=== PATIENT | female | born 1935 | race Caucasian/White ===

== ENCOUNTER 2022-06-24 03:11 | Inpatient (IN) | payer MEDICARE ==
--- NOTE | 2022-06-24 03:24 | ED ---
General Adult HPI - General Stated complaint: Stroke-like Symptoms Source: patient, EMS, RN notes reviewed, old records reviewed - History of Present Illness Initial comments: Patient is an 87-year-old female who presents emergency Department as a code stroke. Last known well was 8 PM. She awoke and was found on the toilet by her son in the bathroom. She seemed confused, with right-sided weakness. He believes there is a past medical history of hypertension, however EMS is uncertain. Unknown if patient is on blood thinners. Patient's son seemed unreliable per EMS and patient cannot provide any substantial history. Unknown if she fell. Transferred to the [facility] department for further evaluation. Patient denies any pain. States she feels weak on her right upper shoulder and right lower extremity. Does have some mild confusion at this time as well. Presents for further evaluation at this time. She denies any history of st rokes. Unknown if she is on blood thinners. - Related Data Allergies Allergy/AdvReac Type Severity Reaction Status Date / Time No Known Allergies Allergy Verified 06/24/22 05:11 Review of Systems ROS Statement: Those systems with pertinent positive or pertinent negative responses have been documented in the HPI. Review of Systems: CONST: Denies fever EYES: Denies blurry vision ENT: Denies nasal congestion C/V: Denies Chest pain RESP: Denies shortness of breath GI: Denies abdominal pain : Denies dysuria SKIN: Denies rash. MSK: Denies joint pain. NEURO: Endorses right-sided weakness ROS Other: All systems not noted in ROS Statement are negative. General Exam - General Exam Comments Initial Comments: General: Appears in no acute distress. HEAD: Normal with no signs of head trauma. EYES: PERRLA, EOMI, conjunctiva normal, no discharge. Pupils 2 mm and equal bilaterally. ENT: Hearing grossly intact, normal oropharynx. RESPIRATORY: Clear breath sounds bilaterally. No wheezes, rales, or rhonchi. C/V: Regular rate and rhythm. S1 and S2 auscultated, peripheral pulses 2+ and intact throughout ABD: Abd is soft, nontender, nondistended EXT: No obvious deformity. Right upper extremity and right lower extremity weakness. SKIN: No rashes or lesions observed on exposed skin. NEURO: Alert and oriented 2. Unknown baseline. NIH is approximately 8. 1 point for current incorrect month, 2 points for right arm motor drift, 2 points for right leg motor drift, 2 points for ataxia in 2 limbs, the right arm and leg 1 point for aphasia Course Vital Signs 06/24/22 06/24/22 06/24/22 03:11 03:51 04:45 Temperature 98.2 F Pulse Rate 69 63 62 Respiratory 18 15 15 Rate Blood Pressure 163/68 158/60 168/59 O2 Sat by Pulse 92 L 95 95 Oximetry 06/24/22 06/24/22 05:30 06:02 Temperature Pulse Rate 55 L 64 Respiratory 16 12 Rate Blood Pressure 164/52 170/60 O2 Sat by Pulse 94 L 95 Oximetry Medical Decision Making - Medical Decision Making Was pt. sent in by a medical professional or institution (, PA, HE[employer], urgent care, hospital, or intermediate...) When possible be specific @ -No Did you speak to anyone other than the patient for history (EMS, parent, family, police, friend...)? What history was obtained from this source @ -No Did you review nursing and triage notes (agree or disagree)? Why? @ -I reviewed and agree with nursing and triage notes Were old charts reviewed (outside hosp., previous admission, EMS record, old EKG, old radiological studies, urgent care reports/EKG's, intermediate records)? Report findings @ -No old charts were reviewed Differential Diagnosis (chest pain, altered mental status, abdominal pain women, abdominal pain men, vaginal bleeding, weakness, fever, dyspnea, syncope, headache, dizziness, GI bleed, back pain, seizure, CVA, palpatations, mental health, musculoskeletal)? @ -Differential CVA Ischemic stroke, hemorrhagic stroke, brain tumor, atypical migraine, Wernicke's encephalopathy, seizure, multiple sclerosis, meningitis, encephalitis, hypoglycemia, Guillain-Nathan, electrolytes disturbance, myasthenia gravis.... This is not meant to be an all-inclusive list EKG interpreted by me (3pts min.). @ -As above X-rays interpreted by me (1pt min.). @ -Chest x-ray shows possible mild pulmonary vascular congestion. CT interpreted by me (1pt min.). @ -CT brain revealed no obvious acute intracranial process. CT angiogram of the head and neck reveals right ICA stenosis 80-90%. No obvious large vessel occlusion or stenosis in the brain. U/S interpreted by me (1pt. min.). @ -None done What testing was considered but not performed or refused? (CT, X-rays, U/S, labs)? Why? @ -None What meds were considered but not given or refused? Why? @ -None Did you discuss the management of the patient with other professionals (professionals i.e. Dr., PA, [employer], lab, RT, psych nurse, social work assistant, application support lead, teacher, patrol officer, rn field case manager)? Give summary @ -I spoke with the neuro critical care doctor Dr. Hernandez who was in agreement with the management for the patient. Requested the patient be started on aspirin, Brilinta. I spoke with the admitting team MELISSA Fung of [facility] who accepted the patient. Was smoking cessation discussed for >3mins.? @ -No Was critical care preformed (if so, how long)? @ -Yes, 35 minutes Were there social determinants of health that impacted care today? How? (H omelessness, low income, unemployed, alcoholism, drug addiction, transportation, low edu. Level, literacy, decrease access to med. care, assisted, rehab)? @ -No Was there de-escalation of care discussed even if they declined (Discuss DNR or withdrawal of care, Hospice)? DNR status @ -No What co-morbidities impacted this encounter? (DM, HTN, Smoking, COPD, CAD, Cancer, CVA, ARF, Chemo, Hep., AIDS, mental health diagnosis, sleep apnea, morbid obesity)? @ -None Was patient admitted / discharged? Hospital course, mention meds given and route, prescriptions, significant lab abnormalities, going to OR and other pertinent info. @ -Based on the patient's presentation and physical exam, I'm concerned for a wake-up stroke for the patient. Last known well was 8 PM last night. It is currently approximately 3 AM in the morning. 7 hours from last known well. Code stroke was activated. NIH is approximately 8. Patient is not a TPA candidate as risks far outweigh the benefits. Accu-Chek is within acceptable limits. Vital signs within acceptable limits. We will obtain CT imaging as well as stroke labs. [facility] returned my call and was in agreement with the plan. We did review the CT without contrast together and it showed no acute ble ed. He will follow-up on the CT angiogram and call back if there is any significant stenosis or blockage he would like to intervene on. Otherwise he recommends adequate management, workup, starting the patient on aspirin and brillinta. EKG showed no signs of acute ischemia. Laboratory studies are remarkable for a mild anemia with a hemoglobin of 11.3. Troponin is undetectable. BNP is minimally elevated to 556. Chest x-ray reveals findings concerning for possible mild pulmonary vascular congestion. Poor inspiratory film overall. I stated above, CT brain reveals no obvious acute intracranial process. No hemorrhagic bleed or signs of stroke at this time. Patient does have some ventriculomegaly likely related to atrophy. CT angiogram of the brain revealed no acute intracranial process. No aneurysm or large vessel occlusion. However the neck does have right ICA stenosis 80-90%. On reevaluation, NIH is now approximate 7-8. Right upper extremity movement is improved as is the patient's aphasia. Patient's son was not bedside. I updated both of them and I would like to admit the patient to the hospital at this time. I did ask the patient's son once again motor medical problems are, however he states that he cannot recall and left her medications at home. He will attempt to obtain them for us. States baseline for the patient is alert and oriented 2-3. Sometimes gets confused with the time. Patient does appear to be at that right now. She is more alert. He expresses understanding of her diagnosis. Patient will be admitted. Neurology consulted. She administered 325 mg of aspirin as well as a loading dose of Brilinta. I spoke with the admitting team, MELISSA Fung of [facility] who accepted the admission. Undiagnosed new problem with uncertain prognosis? @ -No Drug Therapy requiring intensive monitoring for toxicity (Heparin, Nitro, Insulin, Cardizem)? @ -No Were any procedures done? @ -No Diagnosis/symptom? @ -CVA Acute, or Chronic, or Acute on Chronic? @ -Acute Uncomplicated (without systemic symptoms) or Complicated (systemic symptoms)? @ -Complicated Side effects of treatment? @ -none Exacerbation, Progression, or Severe Exacerbation] @ -no Poses a threat to life or bodily function? @ -Potentially Diagnosis/symptom? @ -Right ICA stenosis Acute, or Chronic, or Acute on Chronic? @ -Likely chronic Uncomplicated (without systemic symptoms) or Complicated (systemic symptoms)? @ -Uncomplicated Side effects of treatment? @ -none Exacerbation, Progression, or Severe Exacerbation] @ -no Poses a threat to life or bodily function? @ -no - Lab Data Result diagrams: 06/24/22 03:45 06/24/22 03:45 Lab Results 06/24/22 06/24/22 06/24/22 Range/Units 03:40 03:45 03:45 WBC 8.4 (3.8-10.6) k/uL RBC 3.54 L (3.80-5.40) m/uL Hgb 11.3 L (11.4-16.0) gm/dL Hct 33.7 L (34.0-46.0) % MCV 95.4 (80.0-100.0) fL MCH 31.8 (25.0-35.0) pg MCHC 33.4 (31.0-37.0) g/dL RDW 13.0 (11.5-15.5) % Plt Count 301 (150-450) k/uL MPV 7.7 Neutrophils % 70 % Lymphocytes % 21 % Monocytes % 5 % Eosinophils % 3 % Basophils % 0 % Neutrophils # 5.9 (1.3-7.7) k/uL Lymphocytes # 1.8 (1.0-4.8) k/uL Monocytes # 0.4 (0-1.0) k/uL Eosinophils # 0.2 (0-0.7) k/uL Basophils # 0.0 (0-0.2) k/uL PT 10.6 (9.0-12.0) sec INR 1.0 (<1.2) APTT 24.2 (22.0-30.0) sec Sodium (137-145) mmol/L Potassium (3.5-5.1) mmol/L Chloride (98-107) mmol/L Carbon Dioxide (22-30) mmol/L Anion Gap mmol/L BUN (7-17) mg/dL Creatinine (0.52-1.04) mg/dL Est GFR (CKD-EPI)AfAm (>60 ml/min/1.73 sqM) Est GFR (CKD-EPI)NonAf (>60 ml/min/1.73 sqM) Glucose (74-99) mg/dL POC Glucose (mg/dL) 193 H (70-110) mg/dL POC Glu Director [employer] ID Waqar Godoy Calcium (8.4-10.2) mg/dL Total Bilirubin (0.2-1.3) mg/dL AST (14-36) U/L ALT (4-34) U/L Alkaline Phosphatase (38-126) U/L Ammonia (<30) umol/L Creatine Kinase (30-135) U/L Troponin I (0.000-0.034) ng/mL NT-Pro-B Natriuret Pep pg/mL Total Protein (6.3-8.2) g/dL Albumin (3.5-5.0) g/dL 06/24/22 06/24/22 06/24/22 Range/Units 03:45 03:45 03:45 WBC (3.8-10.6) k/uL RBC (3.80-5.40) m/uL Hgb (11.4-16.0) gm/dL Hct (34.0-46.0) % MCV (80.0-100.0) fL MCH (25.0-35.0) pg MCHC (31.0-37.0) g/dL RDW (11.5-15.5) % Plt Count (150-450) k/uL MPV Neutrophils % % Lymphocytes % % Monocytes % % Eosinophils % % Basophils % % Neutrophils # (1.3-7.7) k/uL Lymphocytes # (1.0-4.8) k/uL Monocytes # (0-1.0) k/uL Eosinophils # (0-0.7) k/uL Basophils # (0-0.2) k/uL PT (9.0-12.0) sec INR (<1.2) APTT (22.0-30.0) sec Sodium 134 L (137-145) mmol/L Potassium 4.6 (3.5-5.1) mmol/L Chloride 102 (98-107) mmol/L Carbon Dioxide 23 (22-30) mmol/L Anion Gap 9 mmol/L BUN 37 H (7-17) mg/dL Creatinine 1.17 H (0.52-1.04) mg/dL Est GFR (CKD-EPI)AfAm 48 (>60 ml/min/1.73 sqM) Est GFR (CKD-EPI)NonAf 42 (>60 ml/min/1.73 sqM) Glucose 183 H (74-99) mg/dL POC Glucose (mg/dL) (70-110) mg/dL POC Glu Director [employer] ID Calcium 8.2 L (8.4-10.2) mg/dL Total Bilirubin 0.3 (0.2-1.3) mg/dL AST 25 (14-36) U/L ALT 15 (4-34) U/L Alkaline Phosphatase 67 (38-126) U/L Ammonia <9 (<30) umol/L Creatine Kinase 46 (30-135) U/L Troponin I <0.012 (0.000-0.034) ng/mL NT-Pro-B Natriuret Pep pg/mL Total Protein 6.1 L (6.3-8.2) g/dL Albumin 3.5 (3.5-5.0) g/dL 06/24/22 Range/Units 03:45 WBC (3.8-10.6) k/uL RBC (3.80-5.40) m/uL Hgb (11.4-16.0) gm/dL Hct (34.0-46.0) % MCV (80.0-100.0) fL MCH (25.0-35.0) pg MCHC (31.0-37.0) g/dL RDW (11.5-15.5) % Plt Count (150-450) k/uL MPV Neutrophils % % Lymphocytes % % Monocytes % % Eosinophils % % Basophils % % Neutrophils # (1.3-7.7) k/uL Lymphocytes # (1.0-4.8) k/uL Monocytes # (0-1.0) k/uL Eosinophils # (0-0.7) k/uL Basophils # (0-0.2) k/uL PT (9.0-12.0) sec INR (<1.2) APTT (22.0-30.0) sec Sodium (137-145) mmol/L Potassium (3.5-5.1) mmol/L Chloride (98-107) mmol/L Carbon Dioxide (22-30) mmol/L Anion Gap mmol/L BUN (7-17) mg/dL Creatinine (0.52-1.04) mg/dL Est GFR (CKD-EPI)AfAm (>60 ml/min/1.73 sqM) Est GFR (CKD-EPI)NonAf (>60 ml/min/1.73 sqM) Glucose (74-99) mg/dL POC Glucose (mg/dL) (70-110) mg/dL POC Glu Director Financial Services ID Calcium (8.4-10.2) mg/dL Total Bilirubin (0.2-1.3) mg/dL AST (14-36) U/L ALT (4-34) U/L Alkaline Phosphatase (38-126) U/L Ammonia (<30) umol/L Creatine Kinase (30-135) U/L Troponin I (0.000-0.034) ng/mL NT-Pro-B Natriuret Pep 556 pg/mL Total Protein (6.3-8.2) g/dL Albumin (3.5-5.0) g/dL - EKG Data -: EKG Interpreted by Me EKG Comments: 12-lead Electrocardiogram Interpretation Note EKG was reviewed and interpreted by myself. 12-lead ECG performed at 0336 is interpreted by me as revealing normal sinus rhythm at a rate of 72 beats per minute. [place] is normal. OR interval is 158 ms, QRS durations 100 ms, QTc is 431 ms.. There were no ST or T wave abnormalities to suggest myocardial ischemia or injury. R wave progression across the precordium was satisfactory. By my interpretation this EKG is non-diagnostic for acute ischemia. Disposition Clinical Impression: Cerebrovascular accident (CVA), Carotid stenosis, right Disposition: ADMITTED IP TO THIS HOSP Condition: Stable Time of Disposition: 04:45
[2022-06-24 03:41] LABS: Glucose,Whole Blood 193 mg/dL (70-110)
--- NOTE | 2022-06-24 03:41 | CT ---
EXAM: CT Head Without Intravenous Contrast CLINICAL HISTORY: ITS.REASON CT Reason: Neuro deficit, acute, stroke suspected TECHNIQUE: Axial computed tomography images of the head/brain without intravenous contrast. CTDI is 48.9 mGy and DLP is 1126.8 mGy-cm. This CT exam was performed using one or more of the following dose reduction techniques: automated exposure control, adjustment of the mA and/or kV according to patient size, and/or use of iterative reconstruction technique. COMPARISON: None. FINDINGS: Brain: No edema or acute infarct. No acute hemorrhage. Moderate atrophy and chronic, nonspecific white matter disease. Ventricles: Moderate ventriculomegaly may be on the basis of atrophy, cannot rule out a communicating hydrocephalus no midline shift. Bones/joints: No skull fracture. Soft tissues: No scalp hematoma. Sinuses: Clear. Mastoid air cells: No mastoid effusion. IMPRESSION: 1. Moderate atrophy and chronic, nonspecific white matter disease. 2. Ventriculomegaly may be on the basis of atrophy, cannot rule out a communicating hydrocephalus. 3. No acute infarct, bleed, or acute intracranial abnormality.
[2022-06-24 03:56] LABS: Basophils % (A) 0 %; Eosinophils # (A) 0.2 k/uL (0-0.7); Eosinophils % (A) 3 %; HCT 33.7 % (34.0-46.0); HGB 11.3 gm/dL (11.4-16.0); Lymphocytes # (A) 1.8 k/uL (1.0-4.8); Lymphocytes % (A) 21 %; MCH 31.8 pg (25.0-35.0); MCHC 33.4 g/dL (31.0-37.0); MCV 95.4 fL (80.0-100.0); Mean Platelet Volume 7.7; Monocytes # (A) 0.4 k/uL (0-1.0); Monocytes % (A) 5 %; Neutrophils # (A) 5.9 k/uL (1.3-7.7); Neutrophils % (A) 70 %; Platelet Count 301 k/uL (150-450); RBC 3.54 m/uL (3.80-5.40); WBC 8.4 k/uL (3.8-10.6)
--- NOTE | 2022-06-24 04:01 | CT ---
EXAM: CT Angiography Head With Intravenous Contrast CLINICAL HISTORY: ITS.REASON CT Reason: Neuro deficit, acute, stroke suspected TECHNIQUE: Axial computed tomographic angiography images of the head with intravenous contrast. CTDI is 9.3 mGy and DLP is 225.6 mGy-cm. This CT exam was performed using one or more of the following dose reduction techniques: automated exposure control, adjustment of the mA and/or kV according to patient size, and/or use of iterative reconstruction technique. MIP reconstructed images were created and reviewed. 65 mL Isovue 370 given IV. COMPARISON: None. FINDINGS: Right internal carotid artery: Patent. Right anterior cerebral artery: Patent. Right middle cerebral artery: Patent. Right posterior cerebral artery: Patent. Right vertebral artery: Patent. Left internal carotid artery: Patent. Left anterior cerebral artery: Patent. Left middle cerebral artery: Patent. Left posterior cerebral artery: Patent. Left vertebral artery: Patent. Basilar artery: Patent. Other: IMPRESSION: 1. No aneurysm or large vessel occlusion. EXAM: CT Angiography Neck With Intravenous Contrast CLINICAL HISTORY: ITS.REASON CT Reason: Neuro deficit, acute, stroke suspected TECHNIQUE: Routine carotid CT angiography protocol was performed with intravenous contrast. NASCET criteria using the distal ICAs for comparison were used for evaluation of stenoses. CTDI is 9.3 mGy and DLP is 225.6 mGy-cm. This CT exam was performed using one or more of the following dose reduction techniques: automated exposure control, adjustment of the mA and/or kV according to patient size, and/or use of iterative reconstruction technique. MIP reconstructed images were created and reviewed. 65 mL Isovue 370 given IV. COMPARISON: None. FINDINGS: VASCULATURE: Right common carotid artery: Patent. Right internal carotid artery: Patent. Severe atherosclerosis and severe, 80-90% stenosis, axial series 401 image 94. Right vertebral artery: Patent. Left common carotid artery: Patent. Left internal carotid artery: Patent. Moderate atherosclerosis without significant stenosis. Left vertebral artery: Patent. Other: Mild scattered interstitial thickening in the lungs. IMPRESSION: 1. Severe, 80-90% right ICA stenosis. No dissection, occlusion, or other significant stenosis. CAROTID STENOSIS REFERENCE USING NASCET CRITERIA: % ICA stenosis = (1 - narrowest ICA diameter/diameter of distal cervical ICA) x 100. Mild - <50% stenosis. Moderate - 50-69% stenosis. Severe - 70-94% stenosis. Near occlusion - 95-99% stenosis. Occluded - 100% stenosis.
[2022-06-24 04:05] LABS: Partial Thromboplastin Time 24.2 sec (22.0-30.0); Prothrombin Time 10.6 sec (9.0-12.0)
[2022-06-24 04:06] LABS: Albumin 3.5 g/dL (3.5-5.0); Calcium 8.2 mg/dL (8.4-10.2); Total Bilirubin 0.3 mg/dL (0.2-1.3); Total Protein 6.1 g/dL (6.3-8.2)
[2022-06-24 04:12] LABS: Potassium 4.6 mmol/L (3.5-5.1)
--- NOTE | 2022-06-24 04:25 | XR ---
EXAM: XR Chest, 1 View CLINICAL HISTORY: ITS.REASON XR Reason: altered mental status TECHNIQUE: Frontal view of the chest. Moderate low lung volumes. COMPARISON: None. FINDINGS: Lungs: Moderate perihilar and interstitial prominence, suggestive of CHF and developing pulmonary edema. Low lung volumes limits evaluation. Pneumonia not excluded. Pleural space: No pneumothorax. Heart: Mild cardiomegaly. Mediastinum: Unremarkable. Bones/Soft Tissues: No acute abnormality. IMPRESSION: 1. Possible CHF with developing pulmonary edema. 2. Limited evaluation due to low lung volumes.
[2022-06-24] MEDS ORDERED: ASPIRIN 325 MG TAB PO STA (04:44)
[2022-06-24] MEDS ORDERED: TICAGRELOR 90 MG TAB PO STA (04:44)
--- NOTE | 2022-06-24 10:36 | P.HPIM ---
History of Present Illness This is a pleasant 87 years old female with no significant past medical history Patient is somewhat poor historian, she says she came because of her son but she does not know what happened. In reviewing the admission records it looks like was found on the toilet by her son in the bathroom. Currently patient is awake and alert she is somewhat confused. She is complaining of from right arm and right leg weakness. She move her right arm slowly but she cannot move her right leg at all. She denies headache dizzinessvision or slurred speech. She denies any other complaint Elsie no chest pain or dyspnea. No vomiting diarrhea or abdominal pain. No urinary complaints No smoking or alcohol scissors as per patient Vitals review, patient is afebrile bradycardic heart rate around 55-64. With hemoglobin 11.3. CBC, INR is unremarkable. Creatinine is 1.1 Crystal BMP and liver enzymes are unremarkable CT of the brain: cerebral atrophy, ventriculomegaly , prolonged communicating hydrocephalus CTA Of the brain showing severe right internal carotid artery stenosis 80-90% Chest x-ray: Possible CHF with developing pulmonary edema EKG: Normal sinus rhythm at [address]-T changes. In the ER she received brilinta ProBNP is 556. Ammonia is low. Creatinine kinase 46. Review of Systems Review of systems CONSTITUTIONAL: No fever, no malaise, no fatigue. HEENT: No recent visual problems or hearing problems. Denied any sore throat. CARDIOVASCULAR: No orthopnea, PND, no palpitations, no syncope. PULMONARY: No shortness of breath, no cough, no hemoptysis. GASTROINTESTINAL: No diarrhea, no nausea, no vomiting, no abdominal pain. Normoactive bowel sounds. NEUROLOGICAL: No headaches, no numbness. HEMATOLOGICAL: Denies any bleeding or petechiae. GENITOURINARY: Denies any burning micturition, frequency, or urgency. MUSCULOSKELETAL/RHEUMATOLOGICAL: Denies any joint pain, swelling, or any muscle pain. ENDOCRINE: Denies any polyuria or polydipsia. Past Medical History History of Any Multi-Drug Resistant Organisms: None Reported Past Psychological History: No Psychological Hx Reported Past Drug Use History: None Reported Medications and Allergies Allergies Allergy/AdvReac Type Severity Reaction Status Date / Time No Known Allergies Allergy Verified 06/24/22 05:11 Physical Exam Vitals: Vital Signs Temp Pulse Resp BP Pulse Ox 06/24/22 08:00 58 L 18 156/62 95 06/24/22 07:19 97.9 F 57 L 16 154/61 94 L 06/24/22 06:02 64 12 170/60 95 06/24/22 05:30 55 L 16 164/52 94 L 06/24/22 04:45 62 15 168/59 95 06/24/22 03:51 63 15 158/60 95 06/24/22 03:11 98.2 F 69 18 163/68 92 L Intake and Output 06/23/22 06/24/22 06/24/22 22:59 06:59 14:59 Other: Weight 57.5 kg GENERAL: The patient is alert and oriented x3, not in any acute distress. Well developed, well nourished. HEENT: Pupils are round and equally reacting to light. EOMI. No scleral icterus. No conjunctival pallor. Normocephalic, atraumatic. No pharyngeal erythema. No thyromegaly. CARDIOVASCULAR: S1 and S2 present. No murmurs, rubs, or gallops. PULMONARY: Chest is clear to auscultation, no wheezing or crackles. ABDOMEN: Soft, nontender, nondistended, normoactive bowel sounds. No palpable organomegaly. MUSCULOSKELETAL: No joint swelling or deformity. EXTREMITIES: No cyanosis, clubbing, or pedal edema. -NEUROLOGICAL: Cranial nerves are grossly intact. Right arm weakness, she could not move her right leg. An anginal signs are absent SKIN: No rashes. no petechiae. Results CBC & Chem 7: 06/24/22 03:45 06/24/22 03:45 Labs: Abnormal Lab Results - Last 24 Hours (Table) 06/24/22 06/24/22 06/24/22 Range/Units 03:40 03:45 03:45 RBC 3.54 L (3.80-5.40) m/uL Hgb 11.3 L (11.4-16.0) gm/dL Hct 33.7 L (34.0-46.0) % Sodium 134 L (137-145) mmol/L BUN 37 H (7-17) mg/dL Creatinine 1.17 H (0.52-1.04) mg/dL Glucose 183 H (74-99) mg/dL POC Glucose (mg/dL) 193 H (70-110) mg/dL Calcium 8.2 L (8.4-10.2) mg/dL Total Protein 6.1 L (6.3-8.2) g/dL Assessment and Plan Assessment: Altered mental status and right-sided weakness. Acute stroke severe right internal carotid artery stenosis 80-90% Symptomatic bradycardia Normochromic normocytic anemia Mildly elevated creatinine most likely secondary to chronic kidney disease stage III, NO BASELINE TO COMPARE NEEDS MONITORING. mild Acute kidney injury still possibility Possible pulmonary edema Plan: Continue with aspirin Add statin Neurology consult Vascular surgery consult Labs and medication were reviewed.. Continue same treatment. Continue with symptomatic treatment. Resume home medication. Monitor labs and vitals. DVT and GI prophylaxis. Further recommendations as per clinical course of the patient DVT prophylaxis: Subcutaneous heparin GI Prophylaxis: Pepcid PT/OT: Pending Prognosis is guarded
[2022-06-24] MEDS: ATORVASTATIN 20 MG TAB PO SCH (10:52)
--- NOTE | 2022-06-24 14:21 | US ---
EXAMINATION TYPE: US carotid duplex BILAT DATE OF EXAM: 06/24/2022 COMPARISON: NONE CLINICAL INDICATION: Female, 87 years old with history of CVA; Stroke had left endarterectomy years a go. TECHNIQUE: Carotid duplex ultrasound examination. Indirect Doppler criteria was utilized. FINDINGS: EXAM MEASUREMENTS: RIGHT: Peak Systolic Velocity (PSV) cm/sec ----- Right CCA: 59.5 ----- Right ICA: 134.5 ----- Right ECA: 317.4 ICA/CCA ratio: 2.3 RIGHT: End Diastole cm/sec ----- Right CCA: 0 ----- Right ICA: 20.7 ----- Right ECA: 0 LEFT: Peak Systolic Velocity (PSV) cm/sec ----- Left CCA: 59.5 ----- Left ICA: 98.7 ----- Left ECA: 127.6 ICA/CCA ratio: 1.7 LEFT: End Diastole cm/sec ----- Left CCA: 0 ----- Left ICA: 11.5 ----- Left ECA: 0 VERTEBRALS (direction of flow): Right Vertebral: Antegrade Left Vertebral: Antegrade Rhythm: Normal ROTARY FURNACE TENDER NOTES: Bilateral plaque visualized. Elevated right ECA. IMPRESSION: No evidence for hemodynamically significant stenosis Criteria for Assigning % of Stenosis / Diameter reduction (Estimation based on the indirect measurements of the internal carotid artery velocities (ICA PSV). 1. Normal (no stenosis)=ICA PSV < 125 cm/s: ratio < 2.0: ICA EDV<40 cm/s. 2. Less than 50% stenosis=ICA PSV < 125 cm/s: ratio < 2.0: ICA EDV<40 cm/s. 3. 50 to 69% stenosis=ICA PSV of 125 to 230 cm/s: ration 2.0 ? 4.0: ICA EDV 40-100 cm/s. 4. Greater than 70% stenosis to near occlusion= ICA PSV > 230 cm/s: ratio > 4.0: ICA EDV > 100 cm/s. 5. Near occlusion= ICA PSV velocities may be low or undetectable: variable ratio and ICA EDV. 6. Total occlusion=unable to detect flow.
[2022-06-24 15:05] LABS: Appearance,Urine Clear (Clear); Bilirubin,Urine Negative (Negative); Blood,Urine Negative (Negative); Color,Urine Light Yellow; Glucose,Urine (UA) Negative (Negative); Ketones,Urine Negative (Negative); Leukocyte Esterase,Urine Negative (Negative); Nitrite,Urine Negative (Negative); Protein,Urine Trace (Negative); Specific Gravity,Urine 1.026 (1.001-1.035); Urobilinogen,Urine <2.0 mg/dL (<2.0)
[2022-06-24 15:17] LABS: Amphetamine Screen,Urine Not Detected (NotDetected); Barbiturate Screen,Urine Not Detected (NotDetected); Benzodiazepines Screen,Urine Not Detected (NotDetected); Cocaine Screen,Urine Not Detected (NotDetected); Methadone Screen, Urine Not Detected (NotDetected); Opiate Screen,Urine Not Detected (NotDetected); Oxycodone Screen, Urine Not Detected (NotDetected); Phencyclidine Screen,Urine Not Detected (NotDetected); Tricyclic Antidepressant,Urine Not Detected (NotDetected); Urn Cannabinoid Scrn Not Detected (NotDetected)
[2022-06-24] MEDS: FAMOTIDINE 20 MG/2 ML VIAL IV SCH (19:53)
[2022-06-24] MEDS: HEPARIN SODIUM,PORCINE/PF 5,000 UNIT/0.5 ML SYRINGE SQ SCH (19:53)
[2022-06-25 07:49] LABS: Basophils % (A) 0 %; Eosinophils # (A) 0.1 k/uL (0-0.7); Eosinophils % (A) 2 %; HGB 11.8 gm/dL (11.4-16.0); Lymphocytes # (A) 1.6 k/uL (1.0-4.8); Lymphocytes % (A) 22 %; MCH 31.4 pg (25.0-35.0); MCHC 32.7 g/dL (31.0-37.0); Mean Platelet Volume 7.6; Monocytes # (A) 0.4 k/uL (0-1.0); Monocytes % (A) 6 %; Neutrophils % (A) 69 %; Platelet Count 331 k/uL (150-450); RBC 3.75 m/uL (3.80-5.40); WBC 7.3 k/uL (3.8-10.6)
[2022-06-25 08:00] LABS: African American GFR (CKD) 49 (>60 ml/min/1.73 sqM); Anion Gap 8 mmol/L; Blood Urea Nitrogen 30 mg/dL (7-17); Calcium 9.1 mg/dL (8.4-10.2); Carbon Dioxide 25 mmol/L (22-30); Chloride 105 mmol/L (98-107); Glucose 121 mg/dL (74-99); Non-African American GFR(CKD) 42 (>60 ml/min/1.73 sqM); Potassium 4.7 mmol/L (3.5-5.1); Sodium 138 mmol/L (137-145)
[2022-06-25] MEDS: ASPIRIN 81 MG PO SCH (08:55)
[2022-06-25] MEDS: ATORVASTATIN 20 MG TAB PO SCH (08:55)
[2022-06-25] MEDS: HEPARIN SODIUM,PORCINE/PF 5,000 UNIT/0.5 ML SYRINGE SQ SCH ×2 (08:55→20:49)
[2022-06-25] MEDS: FAMOTIDINE 20 MG/2 ML VIAL IV SCH (08:55)
[2022-06-25 13:42] LABS: Chol/HDL Ratio 5.34 Ratio; LDL Cholesterol,Calculated 157.1 mg/dL (0.0-131.0)
--- NOTE | 2022-06-25 13:51 | P.CNNES ---
History of Present Illness Consult date: 06/25/22 Requesting physician: Moises Burns Reason for Consult: CVA History of Present Illness: This is a telemedicine neurology consultation performed today on 06/25/2022. Patient is a 87-year-old female, with history of dementia, came to the hospital by ambulance yesterday at 3:11 AM for possible strokelike symptoms. As per EMS flow sheet, when they arrived, patient was sitting on the toilet, leaning to the right. She was alert and oriented 1. Patient's son mentioned that she was acting strange. Patient's son mentioned she moves around with a walker. Patient has had diarrhea. Stroke scale revealed right-sided weakness and repeated questioning. No slurred speech or facial droop. Her last known normal was 8 PM the night prior when she has gone to bed. Patient's blood glucose was 282. Patient's blood pressure at the scene was 140/107, pulse rate 83 respiration 20, saturation 96%. Vital signs on arrival blood pressure 163/68, pulse is 69 and temperature 98.2. Patient had CT head performed, which revealed moderate atrophy and chronic nonspecific white matter disease. Ventriculomegaly may be on the basis of atrophy, cannot rule out a communicating hydrocephalus. No acute infarct, bleed or acute intracranial abnormality. I personally reviewed CT head. It appears amount of ventricle dilation is almost consistent with amount of cortical atrophy. Patient does have prominence of the temporal horns with associated temporal atrophy. Visualized paranasal sinuses are clear. Moderate wax in the EAC bilaterally. Chest x-ray showed possible CHF with developing pulmonary edema. EKG shows sinus rhythm. Patient was considered as a stroke code. However her last known well was 7 hours prior to waking up in the morning. Therefore patient was not a candidate for TPA. Patient's blood test shows normal WBC hemoglobin 11.3, normal platelets, PT/PTT, sodium 134 potassium 4.6, BUN 37 creatinine 1.17. Hepatic panel is normal, troponin negative, UA negative, urine drug screen negative. TSH normal. Tried to contact patient son 3 times to obtain collateral history. The voice mail was full, cannot leave the message. Patient states that she lives with her son, uses a cane for walking. Patient's home medications include donepezil 10 mg, Namenda 10 mg, Lexapro 20 mg, enalapril 20 mg, mirtazapine 30 mg, vitamin D. Review of Systems Constitutional: Denies chills, Denies fever Eyes: denies blurred vision, denies diplopia, denies pain Ears: deny: decreased hearing, ear discharge Ears, nose, mouth and throat: Denies headache, Denies sore throat Cardiovascular: Denies chest pain, Denies shortness of breath Respiratory: Denies cough, Denies excessive sputum Gastrointestinal: Denies abdominal pain, Denies diarrhea, Denies nausea, Denies vomiting Genitourinary: Denies dysuria, Denies hematuria, Denies urge incontinence, Denies urgency, Denies urinary frequency Musculoskeletal: Reports gait dysfunction, Denies frequent falls, Denies myalgias Integumentary: Denies pruritus, Denies rash Neurological: Reports as per HPI Psychiatric: Reports memory loss, Denies anxiety, Denies depression Endocrine: Denies fatigue, Denies weight change Past Medical History Additional Past Medical History / Comment(s): Unable to obtian at this time History of Any Multi-Drug Resistant Organisms: None Reported Additional Past Surgical History / Comment(s): Unable to obtain at this time Past Psychological History: No Psychological Hx Reported Smoking Status: Never smoker Past Drug Use History: None Reported Medications and Allergies Home Medications Medication Instructions Recorded Confirmed Type Cholecalciferol [Vitamin D3 (25 50 mcg PO DAILY 06/24/22 06/24/22 History Mcg = 1000 Iu)] Donepezil [Aricept] 10 mg PO DIRECTED 06/24/22 06/24/22 History Enalapril [Vasotec] 20 mg PO DIRECTED 06/24/22 06/24/22 History Escitalopram [Lexapro] 20 mg PO DIRECTED 06/24/22 06/24/22 History Memantine HCl 10 mg PO DIRECTED 06/24/22 06/24/22 History Mirtazapine 30 mg PO HS 06/24/22 06/24/22 History Nifedipine (Unknown Form) 30mg 30 mg PO DIRECTED 06/24/22 06/24/22 History [place]-3/Dha/Epa/Fish Oil [Fish Oil 1 cap PO BID 06/24/22 06/24/22 History 1,000 mg Softgel] Allergies Allergy/AdvReac Type Severity Reaction Status Date / Time No Known Allergies Allergy Verified 06/24/22 11:15 Physical Examination - Vital Signs Vital Signs: Vital Signs Temp Pulse Pulse Resp BP BP Pulse Ox 06/25/22 04:00 70 18 120/69 93 L 06/25/22 02:00 18 06/25/22 00:00 74 18 160/64 97 06/24/22 20:00 18 06/24/22 19:50 98 F 69 18 158/65 99 06/24/22 16:50 148/68 06/24/22 14:22 98.4 F 69 18 189/67 98 06/24/22 13:52 61 20 186/70 96 Intake and Output 06/24/22 06/25/22 06/25/22 22:59 06:59 14:59 Intake Total 140 Output Total 125 450 Balance 15 -450 Intake: IV 20 Invasive Line 1 5 Invasive Line 2 5 Invasive Line 3 10 Oral 120 Output: Gastric Drainage 0 Urine 125 450 Straight 450 Stool 0 Emesis 0 Other: Voiding Method Indwelling Catheter # Voids 1 # Bowel Movements 0 Patient is an elderly female, in no acute distress. Patient is alert awake oriented 1. Patient knows her name and states is 85 years old. She does not know her date of , the city or state she lives in. She claims that she just woke up. She could not tell the current month or the year. Speech and language functions are normal. Patient can name simple objects like glasses, pencil, and repeat very well. No aphasia or dysarthria. She has slight word finding difficulty it appears. Attention, concentration is slightly impaired and fund of knowledge is significantly limited due to cognitive impairment. On cranial nerve examination, pupils are equal, round and reacting to light, visual king are full on confrontation, with no neglect on double simultaneous stimulation. Extraocular muscles are intact with no nystagmus. Face is symmetric, tongue protrudes to the midline. Palatal elevation and sensation normal, hearing is slightly decreased and shoulder shrug normal, facial sensation normal. On muscle strength testing, patient has right pronator drift. On muscle strength testing (right/left) deltoid 3+/4, biceps 3+/5, triceps 3/5, advertising campaign manager 5/5, hip flexion 2/4+, ankle dorsiflexion 2/5, plantar flexion 2/5. Deep tendon reflexes are (right/left) biceps 2+/2, brachioradialis 1/1, knees 2/2 and plantars are withdrawal bilaterally. Sensory to touch is equal with no neglect on double simultaneous stimulation. Cerebellar function showed slight ataxia for [id number] testing only on the right side. Tone and bulk of muscles normal. Gait deferred.. On general examination, there is no carotid bruit or murmur, S1-S2 audible. Chest is clear on consultation. Abdomen is soft nontender. No organomegaly, bowel sounds present. Peripheral pulses are present. No edema. Results - Laboratory Findings CBC and BMP: 06/25/22 07:02 06/25/22 07:02 Abnormal Lab Findings: Abnormal Labs 06/24/22 06/24/22 06/24/22 03:40 03:45 03:45 RBC 3.54 L Hgb 11.3 L Hct 33.7 L Sodium 134 L BUN 37 H Creatinine 1.17 H Glucose 183 H POC Glucose (mg/dL) 193 H Calcium 8.2 L Total Protein 6.1 L Urine Protein 06/24/22 06/25/22 06/25/22 14:46 07:02 07:02 RBC 3.75 L Hgb Hct Sodium BUN 30 H Creatinine 1.16 H Glucose 121 H POC Glucose (mg/dL) Calcium Total Protein Urine Protein Trace H Assessment and Plan Assessment: * Probable acute ischemic stroke, manifesting with right hemiparesis. * Dementia, moderate to severe degree. * Hypertension Plan: * MRI of the brain without contrast, evaluate for acute CVA * 2-D echo with bubble study to rule out PFO * CTA head and neck showed: Severe, 80-90% right ICA stenosis. No dissection, occlusion or other significant stenosis. CT of the head was normal. * Carotid Doppler, however revealed no evidence for hemodynamically significant stenosis. * Discordant findings between CTA and carotid ultrasound. Await vascular surgery consult. In any case, the right ICA stenosis, if present would be as ymptomatic. * Fasting a.m. lipid panel * Hemoglobin A1c 6.7 * Permissive hypertension for next 24-48 hours * Patient was loaded with aspirin 325 mg and Brilinta 180 mg in the ER. Patient will be maintained on DAP with aspirin 81 mg daily and Brilinta 90 mg twice a day for 30 days. Thereafter may stop Brilinta, and maintain on aspirin 81 mg daily. This recommendation may change based upon above test results. Patient was not taking any antiplatelet medication at home prior to arrival. * Continue Pepcid 20 mg twice a day for gastric ulcer prophylaxis. * Close neuro checks. * Telemetry monitoring rule out any arrhythmia * Continue Namenda and Aricept for dementia. * DVT prophylaxis: Heparin 5000 units subcu every 12 hours. * Tried to contact patient son 3 times to obtain collateral history. The voice mail was full, cannot leave the message. * Dr. Otis Johnson will resume neurology service in the morning. Neurology will continue ot follow. Thank you for the consult. Time with Patient: Greater than 30
[2022-06-25] MEDS: TICAGRELOR 90 MG TAB PO SCH ×2 (14:57→23:30)
[2022-06-25] MEDS: DONEPEZIL 10 MG TAB PO SCH (20:49)
[2022-06-25] MEDS: MEMANTINE 10 MG TAB PO SCH (20:49)
[2022-06-25] MEDS ORDERED: amLODIPine 2.5 MG TAB PO SCH (21:15)
--- NOTE | 2022-06-25 21:22 | P.PN ---
Subjective This is a pleasant 87 years old female with no significant past medical history Patient is somewhat poor historian, she says she came because of her son but she does not know what happened. In reviewing the admission records it looks like was found on the toilet by her son in the bathroom. Currently patient is awake and alert she is somewhat confused. She is complaining of from right arm and right leg weakness. She move her right arm slowly but she cannot move her right leg at all. She denies headache dizzinessvision or slurred speech. She denies any other complaint Elsie no chest pain or dyspnea. No vomiting diarrhea or abdominal pain. No urinary complaints No smoking or alcohol scissors as per patient Vitals review, patient is afebrile bradycardic heart rate around 55-64. With hemoglobin 11.3. CBC, INR is unremarkable. Creatinine is 1.1 Crystal BMP and liver enzymes are unremarkable CT of the brain: cerebral atrophy, ventriculomegaly , prolonged communicating hydrocephalus CTA Of the brain showing severe right internal carotid artery stenosis 80-90% Chest x-ray: Possible CHF with developing pulmonary edema EKG: Normal sinus rhythm at [address]-T changes. In the ER she received brilinta ProBNP is 556. Ammonia is low. Creatinine kinase 46. 06/26/2019 Patient right arm weakness is improving, today she can move her right arm above her head but still weaker than the left side. Right leg weakness is severe and with no improvement today, she barely can move it or raise it off the bed. Echocardiogram and MRI pending Patient is started on aspirin and brilinta Start Norvasc 2.5 mg for hypertension Also patient pre-diabetes or urinary diabetes mellitus with hemoglobin A1c 6.7, start diabetic diet Vascular surgery consult for ICA stenosis of the left side, 80% Objective - Vital Signs Vital signs: Vital Signs Temp 98.4 F 06/25/22 08:50 Pulse 96 06/25/22 08:50 Resp 18 06/25/22 08:50 BP 196/66 06/25/22 08:50 Pulse Ox 94 L 06/25/22 09:01 FiO2 Intake & Output 06/24/22 06/25/22 06/25/22 18:59 06:59 18:59 Intake Total 140 10 Output Total 1325 450 Balance -1185 -450 10 Weight 57.5 kg Intake: IV 20 10 Invasive Line 1 5 10 Invasive Line 2 5 Invasive Line 3 10 Oral 120 Output: Gastric Drainage 0 Urine 1325 450 Straight 1200 450 Stool 0 Emesis 0 Other: Voiding Method External Catheter Indwelling Catheter Indwelling Catheter # Voids 1 # Bowel Movements 0 - Exam GENERAL: The patient is alert and oriented x3, not in any acute distress. Well developed, well nourished. HEENT: Pupils are round and equally reacting to light. EOMI. No scleral icterus. No conjunctival pallor. Normocephalic, atraumatic. No pharyngeal erythema. No thyromegaly. CARDIOVASCULAR: S1 and S2 present. No murmurs, rubs, or gallops. PULMONARY: Chest is clear to auscultation, no wheezing or crackles. ABDOMEN: Soft, nontender, nondistended, normoactive bowel sounds. No palpable organomegaly. MUSCULOSKELETAL: No joint swelling or deformity. EXTREMITIES: No cyanosis, clubbing, or pedal edema. -NEUROLOGICAL: Cranial nerves are grossly intact. Right arm weakness improved, she could not move her right leg which did not improve. Meningeal signs are absent SKIN: No rashes. no petechiae. - Labs CBC & Chem 7: 06/25/22 07:02 06/25/22 07:02 Labs: Abnormal Lab Results - Last 24 Hours (Table) 06/24/22 06/25/22 06/25/22 Range/Units 14:46 07:02 07:02 RBC 3.75 L (3.80-5.40) m/uL BUN 30 H (7-17) mg/dL Creatinine 1.16 H (0.52-1.04) mg/dL Glucose 121 H (74-99) mg/dL Urine Protein Trace H (Negative) Assessment and Plan Assessment: Altered mental status and right-sided weakness. Acute stroke severe right internal carotid artery stenosis 80-90% Earlier onset diabetes mellitus. Diabetes Hypertension, uncontrolled asymptomatic bradycardia Normochromic normocytic anemia Mildly elevated creatinine most likely secondary to chronic kidney disease stage III, NO BASELINE TO COMPARE NEEDS MONITORING. mild Acute kidney injury still possibility Possible pulmonary edema Plan: Continue with aspirin and brilinta follow-up echocardiogram and MRI of the brain Add statin Neurology consult Vascular surgery consult Labs and medication were reviewed.. Continue same treatment. Continue with symptomatic treatment. Resume home medication. Monitor labs and vitals. DVT and GI prophylaxis. Further recommendations as per clinical course of the patient DVT prophylaxis: Subcutaneous heparin GI Prophylaxis: Pepcid PT/OT: Pending Prognosis is guarded
[2022-06-26] MEDS ORDERED: hydrALAZINE HCL 20 MG/ML 1 ML VIAL IM STA (06:05)
[2022-06-26] MEDS ORDERED: hydrALAZINE HCL 20 MG/ML 1 ML VIAL IVP STA (06:14)
[2022-06-26] MEDS: FAMOTIDINE 20 MG TAB PO SCH (07:40)
[2022-06-26] MEDS: ATORVASTATIN 20 MG TAB PO SCH (07:40)
[2022-06-26] MEDS: amLODIPine 5 MG TAB PO SCH (07:40)
[2022-06-26] MEDS: TICAGRELOR 90 MG TAB PO SCH ×2 (07:40→20:43)
[2022-06-26] MEDS: HEPARIN SODIUM,PORCINE/PF 5,000 UNIT/0.5 ML SYRINGE SQ SCH ×2 (07:40→20:44)
[2022-06-26] MEDS: ASPIRIN 81 MG PO SCH (07:41)
[2022-06-26] MEDS: MEMANTINE 10 MG TAB PO SCH ×2 (07:41→20:43)
[2022-06-26] MEDS ORDERED: ONDANSETRON 4 MG/2 ML VIAL IVP PRN (09:48)
--- NOTE | 2022-06-26 10:02 | MR ---
EXAMINATION TYPE: MR brain wo con DATE OF EXAM: 06/26/2022 COMPARISON: CT scan 06/24/2002 HISTORY: Neuro deficit. TECHNIQUE: T1-weighted sagittal, T2, FLAIR, and diffusion axial, and T2 coronal coronal views of the brain are submitted. FINDINGS: There is a area within the left parieto-occipital junction measuring 1 x 3 mm adjacent punctate 2 mm and 5 mm area of abnormal perfusion restriction. Additional question of a punctate area of abnormal s ignal within the posterior right parietal cortex axial image 20 COMPATIBLE with acute to subacute isc hemia. Along the vertex and superior portion of the left parietal lobe there is diffusion restriction . Report called to patient's nurse at 9:50 AM 06/26/2022. The ventricles, basal cisterns, and sulci overlying the convexities are consistent with moderate to s evere degenerative changes slightly greater centrally.. There is no mass effect. FLAIR imaging demo nstrates additional areas of abnormal signal seen scattered throughout the white matter in a nonspeci fic pattern but most of the white matter ischemia. Craniocervical junction maintained. Sella turcica has a normal appearance. No cerebellopontine angle mass. IMPRESSION: 1. Multiple small areas of cortical and subcortical acute to subacute ischemia involving the left sup erior parietal lobe, left parieto-occipital junction, and punctate area within the right posterior pa rietal lobe. No mass effect or midline shift. 2. Degenerative and remote ischemic change. Greater central component of the ventricular dilation sug gests possibility of normal pressure hydrocephalus within the differential diagnosis. Correlate clini laurent.
[2022-06-26 11:24] LABS: LDL Cholesterol,Calculated 155.1 mg/dL (0.0-131.0)
--- NOTE | 2022-06-26 12:22 | P.GSCN ---
History of Present Illness Consult date: 06/26/22 Reason for Consult: Right ICA stenosis Requesting physician: Dwayne E Sheet History of present illness: This is a pleasant 87-year-old female who presented to the emergency department early Sunday morning with complaints of right-sided weakness. Patient apparently had gotten up to the bathroom and was found by her son to be leaning to the right, she also had some difficulty/slurred speech. Patient states right lower extremity affected greater than right upper extremity. Patient states she still has no movement in her right lower extremity but right upper extremity is improving. She denied any difficulty with swallowing, no visual changes. No previous history of stroke, denies any history of coronary artery disease or atrial fibrillation. She has past medical history including dementia. The patient denies any shortness of breath, chest pain, abdominal pain, nausea or vomiting, fevers or chills. She currently is answering all questions appropriately, following commands and is alert and oriented. As part of her workup she underwent a CT angiogram of the head and neck in the emergency department that reported 80-90% severe right ICA stenosis. Vascular surgery was consulted for ICA stenosis. The patient then underwent carotid duplex that showed no significant stenosis. The patient had been started on Brilinta 90 mg twice a day, aspirin 81mg daily, and Lipitor [address] Work[address] Brain CT without contrast reported moderate atrophy and chronic nonspecific white matter disease. Ventriculomegaly may be on the basis of atrophy, cannot rule out a communicating hydrocephalus. No acute infarct, bleed or acute intracranial abnormality CT angiogram head and neck reports no aneurysm or large vessel occlusion. Severe 80-90% right ICA stenosis. No dissection, occlusion or other significant stenosis. Carotid duplex reports no evidence for hemodynamically significant stenosis Brain MRI reports multiple small areas of cortical and subcortical acute to subacute ischemia involving the left superior parietal lobe, left parietal occipital junction, and punctuate area within the right posterior parietal lobe. No mass effect or midline shift. Degenerative and remote ischemic change. Greater central component of the ventricular dilation suggest possibility of normal pressure hydrocephalus within the differential diagnosis. Correlate clinically. Review of Systems A 14 point review systems was completed all pertinent positives and negatives as stated in the HPI. Past Medical History Additional Past Medical History / Comment(s): Unable to obtian at this time History of Any Multi-Drug Resistant Organisms: None Reported Additional Past Surgical History / Comment(s): Unable to obtain at this time Past Psychological History: No Psychological Hx Reported Smoking Status: Never smoker Past Drug Use History: None Reported Medications and Allergies Home Medications Medication Instructions Recorded Confirmed Type Cholecalciferol [Vitamin D3 (25 50 mcg PO DAILY 06/24/22 06/24/22 History Mcg = 1000 Iu)] Donepezil [Aricept] 10 mg PO HS 06/24/22 06/26/22 History Enalapril [Vasotec] 20 mg PO DAILY 06/24/22 06/26/22 History Escitalopram [Lexapro] 20 mg PO DAILY 06/24/22 06/26/22 History Memantine HCl 10 mg PO DAILY 06/24/22 06/26/22 History Mirtazapine 30 mg PO HS 06/24/22 06/26/22 History [place]-3/Dha/Epa/Fish Oil [Fish Oil 1 cap PO BID 06/24/22 06/24/22 History 1,000 mg Softgel] NIFEdipine XL [Procardia Xl] 30 mg PO DAILY 06/26/22 06/26/22 History Allergies Allergy/AdvReac Type Severity Reaction Status Date / Time No Known Allergies Allergy Verified 06/24/22 11:15 Surgical - Exam Vital Signs Temp Pulse Resp BP Pulse Ox 98.2 F 69 18 163/68 92 L 06/24/22 03:11 06/24/22 03:11 06/24/22 03:11 06/24/22 03:11 06/24/22 03:11 General appearance: The patient is alert, oriented, appears in no acute distress. HET: Head is normocephalic and atraumatic. Pupils are equal and reactive. Neck: Supple. Trachea midline. No audible carotid bruit. Heart: Regular. Lungs: Equal expansion, normal respiratory effort. Abdomen: Soft, nontender, nondistended. Extremities: Normal skin color and turgor. No cyanosis, rash, ulceration, clubbing, or edema. Radial and pedal pulses are 2/4 bilaterally. Neurological: Patient alert and oriented 3. On speech is fluent, patient has facial symmetry, following commands and answering questions appropriately. Right upper extremity weakness 3/5 compared to left. Right lower extremity with good tone, no mobility. Results - Labs 06/25/22 07:02 06/25/22 07:02 Abnormal Lab Results - Last 24 Hours (Table) 06/25/22 06/25/22 Range/Units 07:02 07:02 Hemoglobin A1c 6.7 H (0.0-6.0) % Triglycerides 263.00 H (0.00-149.00) mg/dL Cholesterol 258.00 H (0.00-200.00) mg/dL LDL Cholesterol, Calc 157.1 H (0.0-131.0) mg/dL VLDL Cholesterol, Calc 52.60 H (5.00-40.00) mg/dL Diabetes panel 06/25/22 06/25/22 Range/Units 07:02 07:02 Hemoglobin A1c 6.7 H (0.0-6.0) % Triglycerides 263.00 H (0.00-149.00) mg/dL HDL Cholesterol 48.30 (40.00-60.00) mg/dL Assessment and Plan Assessment: 1. Acute ischemic stroke manifesting with right hemiparesis 2. Multiple small areas of cortical subcortical acute to subacute ischemia involving left superior parietal lobe, left parieto-occipital junction and punch wet area within the right posterior parietal lobe per MRI 3. Discordant findings between CT angiogram and carotid duplex. [place] that carotid duplex is more accurate with patent bilateral carotids as reviewed by Dr. Mansfield. 4. Dementia Plan: 1. Continue recommendations from neurology 2. PT/OT/ST on consult 3. No vascular surgical intervention indicated at this time. Continue with medical therapy. Recommend outpatient follow-up with vascular surgery Thank you for this consultation, we will continue to follow. The impression and plan of care has been dictated as directed. I performed a history and examination of this patient, discussed the same with the dictator. I agree with the dictator's note ,documented as a scribe. Any additional findings or plans will be noted.
[2022-06-26 13:04] VITALS: BMI 22.4
--- NOTE | 2022-06-26 15:11 | P.PN ---
Subjective Progress Note Date: 06/26/22 I am seeing the patient for the first time during this admission. She is accompanied with her son who is at bedside. Son stated, that she was found on the toilet but was wide wake, drooling on the right side with right sided weakness and that what brought her to the hospital. He denies she being on antiplatelets or anticoagulation. He is unsure if she has history of atrial fibrillation or flutter in past. He stated she has bad knees and uses a walker at baseline. She is not oriented to time at baseline. She continues to have right sided weakness. Please refer to Dr. Mcdonald's notes for further details. Objective - Vital Signs Vital signs: Vital Signs Temp 97.5 F L 06/26/22 12:00 Pulse 74 06/26/22 13:39 Resp 17 06/26/22 12:00 BP 156/68 06/26/22 12:00 Pulse Ox 98 06/26/22 12:00 FiO2 Intake & Output 06/25/22 06/26/22 06/26/22 18:59 06:59 18:59 Intake Total 90 0 Output Total 500 300 Balance -410 -300 0 Weight 57.5 kg Intake: IV 10 Invasive Line 1 10 Oral 80 0 Output: Urine 500 300 Other: Voiding Method Indwelling Catheter Indwelling Catheter Indwelling Catheter - Exam Neuro: Higher mental function: The patient is awake, alert, oriented to self and stated was in hospital but unsure of name. She could not tell me time. She is able to name pen with options. She is slow responding to questions. She is following few simple commands. Language is limited. No neglect. Cranial Nerves: Pupils are round, equal and reactive to light. Visual field are full to confrontation. EOM intact looking to right and left side and without any nystagmus. No dysarthria. Right upper extremity: 4--4+ with right pronator drift. Right lower is minimally able to wiggle toes on right but has significant weakness right lowers. Left seems normal - Labs CBC & Chem 7: 06/25/22 07:02 06/25/22 07:02 Labs: Abnormal Lab Results - Last 24 Hours (Table) 06/26/22 Range/Units 07:28 Triglycerides 296.00 H (0.00-149.00) mg/dL Cholesterol 263.00 H (0.00-200.00) mg/dL LDL Cholesterol, Calc 155.1 H (0.0-131.0) mg/dL VLDL Cholesterol, Calc 59.20 H (5.00-40.00) mg/dL Assessment and Plan Assessment: * Acute ischemic stroke, manifesting with right hemiparesis. MRI reveal stroke over the left parietal, parietal-occipitala and small right pareital but if feel more left frontal and left parietal/occipital region and small focus 9maybe two over the right parietal-occitial/frontal. Seems cardioembolic in nature * Right hemiparesis due to above * Diabetes Mellitus * Dyslipidemia * Discordant findings between CT angiogram (right ICA of about 80-90%) and carotid duplex. [place] that carotid duplex is more accurate with no significant stenosis bilaterally per vascular team. * Dementia, moderate to severe degree. * Hypertension Plan: * MRI Brain is reported as multiple small area of cortical subcortical acute to subacute ischemic involving the left superior parietal lobe, left parietal occipital junction and punctate area within the right posteroparietal lobe area no mass effect or midline shift. Degenerative and removal ischemic changes. Greater central component of the ventricle dialysis just possibly of normal pressure hydrocephalus within the differential diagnosis. Correlate clinically. Personally reviewed the MRI and I felt the stroke was involving mostly the left frontal as well as left parietal occipital region and a small 2 focuses over the right hemisphere over the right parieto-occipital and maybe the right frontal region. I feel the stroke is a seems more cardioembolic in nature. Regarding this concern of NPH on imaging recommend follow-up as an outpatient neurologist for further workup and management but I do not feels she is a good candidate for REHABILITATION SPECIALIST shunt and her son is not leaning of any surgery because of her age.. * 2-D echo with bubble study to rule out PFO is pending. If 2D echo is negative for thrombus to consider DEEJAY with cardiology consultation. Recommend event monitor for 30 days to rule out any a-fib or flutter. * CTA head and neck showed: Severe, 80-90% right ICA stenosis. No dissection, occlusion or other significant stenosis. CT of the head was normal. * Carotid Doppler, however revealed no evidence for hemodynamically significant stenosis. * Discordant findings between CTA and carotid ultrasound. Vascular feels carotid duplex is more accurate. * Fasting a.m. lipid panel: TG 296, cholestrol 263, LDL 155 and HDL 48 * Hemoglobin A1c 6.7 * Patient was loaded with aspirin 325 mg and Brilinta 180 mg in the ER. Patient will be maintained on DAP with aspirin 81 mg daily and Brilinta 90 mg twice a day for 30 days. Thereafter may stop Brilinta, and maintain on aspirin 81 mg daily. This recommendation may change based upon above test results. Patient was not taking any antiplatelet medication at home prior to arrival. * Continue Pepcid 20 mg twice a day for gastric ulcer prophylaxis. * Close neuro checks. * Telemetry monitoring rule out any arrhythmia * Continue Namenda and Aricept for dementia. * DVT prophylaxis: Heparin 5000 units subcu every 12 hours. The plan is discussed in detailed with her son who is at bedside and I personally showed him the MRI imaging of area of stroke and went over the plan. Also discussed with primary team. Time with Patient: Greater than 30
[2022-06-26] MEDS ORDERED: DEXTROSE 50% SYRINGE 50 ML IVP PRN ×2 (17:33)
--- NOTE | 2022-06-26 17:35 | P.PN ---
Subjective Progress Note Date: 06/26/22 This is a pleasant 87 years old female with no significant past medical history Patient is somewhat poor historian, she says she came because of her son but she does not know what happened. In reviewing the admission records it looks like was found on the toilet by her son in the bathroom. Currently patient is awake and alert she is somewhat confused. She is complaining of from right arm and right leg weakness. She move her right arm slowly but she cannot move her right leg at all. She denies headache dizzinessvision or slurred speech. She denies any other complaint Elsie no chest pain or dyspnea. No vomiting diarrhea or abdominal pain. No urinary complaints No smoking or alcohol scissors as per patient Vitals review, patient is afebrile bradycardic heart rate around 55-64. With hemoglobin 11.3. CBC, INR is unremarkable. Creatinine is 1.1 Crystal BMP and liver enzymes are unremarkable CT of the brain: cerebral atrophy, ventriculomegaly , prolonged communicating hydrocephalus CTA Of the brain showing severe right internal carotid artery stenosis 80-90% Chest x-ray: Possible CHF with developing pulmonary edema EKG: Normal sinus rhythm at [address]-T changes. In the ER she received brilinta ProBNP is 556. Ammonia is low. Creatinine kinase 46. 06/26/2019 Patient right arm weakness is improving, today she can move her right arm above her head but still weaker than the left side. Right leg weakness is severe and with no improvement today, she barely can move it or raise it off the bed. Echocardiogram and MRI pending Patient is started on aspirin and brilinta Start Norvasc 2.5 mg for hypertension Also patient pre-diabetes or urinary diabetes mellitus with hemoglobin A1c 6.7, start diabetic diet Vascular surgery consult for ICA stenosis of the left side, 80% 06/26/2022 Patient is evaluated today sitting up in bed, family at bedside. Patient reports no issues with swallowing. She is alert x3. Continues with the right hemiparesis although has been moving right arm weak grasp. Echocardiogram taken and pending. Consider DEEJAY to rule out embolic source of acute stroke. Patient did undergo MRI today which reveals small multiple areas of cortical and subcortical acute to subacute ischemia involving the left superior parietal lobe, left parietal occipital junction, and punctuate area within the right posterior parietal lobe. There is no mass effect or midline shift. There are degenerative abnormal ischemic change. There is greater central component of the ventricular dilation suggests possibility of hydrocephalus with the differential diagnosis. Upon review of the MRI it is felt that the ventricles are normal size for patients age. The lipid panel significantly elevated with a triglyceride level of 296, cholesterol 263, LDL 155, HDL 48.7. Review of Systems Constitutional: Denied any fatigue denied any fever. Cardio vascular: denied any chest pain, palpitations Gastrointestinal: denied any nausea, vomiting, diarrhea Pulmonary: Denied any shortness of breath cough Neurologic denied any new focal deficits All inpatient medications were reviewed and appropriate changes in these medications as dictated in the interval history and assessment and plan. PHYSICAL EXAMINATION: GENERAL: The patient is alert and oriented x2-3, not in any acute distress. Well developed, well nourished. HEENT: Pupils are round and equally reacting to light. EOMI. No scleral icterus. No conjunctival pallor. Normocephalic, atraumatic. No pharyngeal erythema. No thyromegaly. CARDIOVASCULAR: S1 and S2 present. No murmurs, rubs, or gallops. PULMONARY: Chest is clear to auscultation, no wheezing or crackles. ABDOMEN: Soft, nontender, nondistended, normoactive bowel sounds. No palpable organomegaly. MUSCULOSKELETAL: No joint swelling or deformity. EXTREMITIES: No cyanosis, clubbing, or pedal edema. NEUROLOGICAL: Right lower extremity paralysis, 2/5 strength right upper exremity weak grasp SKIN: No rashes. Assessment and plan Assessment -Acute bilateral stroke ischemic vs. embolic with right hemiparesis, patient has multiple small areas of cortical subcortical acute to subacute ischemia in the left superior parietal, left parieto-occipital junction and punctuate area within the right posterior parietal lobe. -Rule out carotid artery stenosis, vascular evaluation and felt carotid duplex is more accurate with patent bilateral carotid arteries -Borderline diabetes with hemoglobin A1c of 6.7 this is a new onset Dyslipidemia with triglycerides of 296 and cholesterol level of 263, LDL is elevated at 155. -Elevated creatinine this is possibly a chronic kidney disease stage III versus a mild acute kidney injury. No prior creatinine available for comparison. -Hyponatremia resolved -Symptomatic bradycardia -Anemia, normocytic and normochromic GI prophylaxis DVT prophylaxis Plan Echocardiogram pending Possible DEEJAY pending echocardiogram results Continue cardiac monitoring and patient requiring event monitor on discharge Atorvastatin has been increased Neurology following closely Inpatient rehab on discharge when medically stable The impression and plan of care has been dictated by Mari Malone Nurse Practitioner as directed. Dr. Giana MD I have performed a history and physical examination and medical decision making of this patient, discussed the same with the dictator, and agree with the dictators assessment and plan as written, documented as a scribe. Based on total visit time, I have performed more than 50% of this visit. Objective - Vital Signs Vital signs: Vital Signs Temp 97.5 F L 06/26/22 12:00 Pulse 74 06/26/22 13:39 Resp 17 06/26/22 12:00 BP 156/68 06/26/22 12:00 Pulse Ox 98 06/26/22 12:00 FiO2 Intake & Output 06/25/22 06/26/22 06/26/22 18:59 06:59 18:59 Intake Total 90 0 Output Total 500 300 Balance -410 -300 0 Weight 57.5 kg Intake: IV 10 Invasive Line 1 10 Oral 80 0 Output: Urine 500 300 Other: Voiding Method Indwelling Catheter Indwelling Catheter Indwelling Catheter - Labs CBC & Chem 7: 06/25/22 07:02 06/25/22 07:02 Labs: Abnormal Lab Results - Last 24 Hours (Table) 06/26/22 Range/Units 07:28 Triglycerides 296.00 H (0.00-149.00) mg/dL Cholesterol 263.00 H (0.00-200.00) mg/dL LDL Cholesterol, Calc 155.1 H (0.0-131.0) mg/dL VLDL Cholesterol, Calc 59.20 H (5.00-40.00) mg/dL Assessment and Plan Time with Patient: Less than 30
[2022-06-26 19:47] LABS: Glucose,Whole Blood 130 mg/dL (70-110)
[2022-06-26] MEDS: INSULIN ASPART (NovoLOG) 100 UNIT/ML VIAL SQ SCH (20:32)
[2022-06-26] MEDS: DONEPEZIL 10 MG TAB PO SCH (20:43)
[2022-06-27 05:57] LABS: Glucose,Whole Blood 157 mg/dL (70-110)
--- NOTE | 2022-06-27 06:02 | P.CONS ---
History of Present Illness - Chief Complaint Gait disturbance, right hemiparesthesias - History of Present Illness I had the opportunity see patient for inpatient rehab consultation. Patient admitted to Dr. wahl June 22 to acute onset right-sided weakness, found on toilet. Diagnostic tests head CT with moderate atrophy and ventriculomegaly. Angiogram CT all cerebral arteries patent. Chest x-ray consistent with CHF and cardiomegaly. Carotid Doppler done. Brain MRI demonstrates multiple infarcts left parietal and possible areas and a punctate lesion right posterior parietal area. Also degenerative changes and ventricular dilatation. Seen by telemedicine neurology Dr. Jackman and later Dr. Dr. Johnson. His started therapies. PT reports two-person total assistance bed mobility and two-person maximal assistance to stand and transfer. OT reports moderate assistance for feeding, maximal assistance for grooming, two-person maximal assistance for upper dressing and bathing and two-person total assistance for toileting and toilet transfer. Speech therapy assessed diet and plan pured and thin liquids. Previous functional history as elicited from patient: 87-year-old right-handed white female who is lives in one form with . generally does cooking, laundry, driving. also assist patient with sitdown bath, dressing, gait with roller walker. PCP Dr. West. Review of Systems Review of systems: ENT: Denies sneezes or discharge. Eyes: Denies discharge or photophobia. Cardiac: Denies chest pain or palpitation. Pulmonary: Denies cough or shortness of breath. Breast: Denies discharge or lumps. Gastrointestinal: Denies nausea, emesis, constipation, diarrhea. Genitourinary: Denies discharge or frequency. Musculoskeletal: Denies muscle or bone aches. Neurologic: Right-sided weakness and numbness. Endocrine: Denies shakes or sweats. Oncology: Denies cancers. Dermatologic: Denies rash, itching, pruritus. ALLERGY/immunology: Denies sneezes, rashes. Past Medical History Additional Past Medical History / Comment(s): Unable to obtian at this time History of Any Multi-Drug Resistant Organisms: None Reported Additional Past Surgical History / Comment(s): Unable to obtain at this time Past Psychological History: No Psychological Hx Reported Smoking Status: Never smoker Past Drug Use History: None Reported Medications and Allergies Home Medications Medication Instructions Recorded Confirmed Type Cholecalciferol [Vitamin D3 (25 50 mcg PO DAILY 06/24/22 06/24/22 History Mcg = 1000 Iu)] Donepezil [Aricept] 10 mg PO HS 06/24/22 06/26/22 History Enalapril [Vasotec] 20 mg PO DAILY 06/24/22 06/26/22 History Escitalopram [Lexapro] 20 mg PO DAILY 06/24/22 06/26/22 History Memantine HCl 10 mg PO DAILY 06/24/22 06/26/22 History Mirtazapine 30 mg PO HS 06/24/22 06/26/22 History Correll-3/Dha/Epa/Fish Oil [Fish Oil 1 cap PO BID 06/24/22 06/24/22 History 1,000 mg Softgel] NIFEdipine XL [Procardia Xl] 30 mg PO DAILY 06/26/22 06/26/22 History Allergies Allergy/AdvReac Type Severity Reaction Status Date / Time No Known Allergies Allergy Verified 06/24/22 11:15 Physical Exam Vitals: Vital Signs Temp Pulse Resp BP Pulse Ox 06/27/22 04:11 97.7 F 72 16 172/64 96 06/26/22 23:04 97.5 F L 77 16 155/72 96 06/26/22 20:00 97.8 F 75 16 170/64 97 06/26/22 16:00 98.0 F 79 17 157/60 97 06/26/22 13:39 74 06/26/22 12:00 97.5 F L 74 17 156/68 98 06/26/22 07:39 98.7 F 68 16 178/62 98 06/26/22 07:04 160/63 Intake and Output 06/26/22 06/26/22 06/27/22 14:59 22:59 06:59 Intake Total 0 0 Output Total 800 Balance 0 -800 Intake: Oral 0 0 Output: Urine 800 Uretheral ([place]) 800 Other: Voiding Method Indwelling Catheter Indwelling Catheter Indwelling Catheter Weight 57.5 kg Skin: Atrophic, intact. General: Medium build and comfortable appearance. Head: Normocephalic, atraumatic. Eyes: Symmetric. Pupils equal round. Ears: Symmetric. Hearing within normal limits. Mouth: Clear. Neck: Supple. Carotid without bruit. Cardiac: Regular rate and rhythm. Lungs: Clear anteriorly and posteriorly. Abdomen: Soft active nontender. Extremities: Normal tone. Neurological: Mental status: Alert, cooperative, pleasant. Cranial nerves: Symmetric facial tone and trapezius. Motor: Active movement both arms and left leg. Right leg poor and in extension synergy. Perhaps mild synergy component right hand. Sensation: Intact throughout. DTRs: Symmetric and equal throughout. Mobility: Did not attempt to sit or stand this early a.m. on my own. Results CBC & Chem 7: 06/25/22 07:02 06/25/22 07:02 Labs: Abnormal Lab Results - Last 24 Hours (Table) 06/26/22 06/26/22 Range/Units 07:28 19:44 POC Glucose (mg/dL) 130 H (70-110) mg/dL Triglycerides 296.00 H (0.00-149.00) mg/dL Cholesterol 263.00 H (0.00-200.00) mg/dL LDL Cholesterol, Calc 155.1 H (0.0-131.0) mg/dL VLDL Cholesterol, Calc 59.20 H (5.00-40.00) mg/dL Assessment and Plan (1) Carotid stenosis, right Current Visit: Yes Status: Acute Code(s): I65.21 - OCCLUSION AND STENOSIS OF RIGHT CAROTID ARTERY SNOMED Code(s): 426191379506024 (2) Cerebrovascular accident (CVA) Current Visit: Yes Status: Acute Code(s): I63.9 - CEREBRAL INFARCTION, UNSPECIFIED SNOMED Code(s): 614442897 Plan: Comments and plan: At this time safety concerns are noted. Patient currently two-person assist and unsure can handle this. Patient could benefit from inpatient rehab depending on 's goals and plans.
[2022-06-27] MEDS: INSULIN ASPART (NovoLOG) 100 UNIT/ML VIAL SQ SCH ×4 (06:24→20:59)
--- NOTE | 2022-06-27 07:35 | CA ---
Transthoracic Echo Report Name: Mari Rodriguez Age: 87 Gender: F : 1935 Exam Date: 06/26/2022 10:08 Exam Location: [facility] Ht (in): 63 Wt (lb): 126 Ordering Physician: Dwayne Lopez MD Attending/Referring Phys: [id number], Jessica Welding Machine Operator [employer]ien Daigle, VERÓNICA Procedure CPT: Indications: Rule out heart disease Cardiac Hx: Technical Quality: Fair Contrast 1: Total Dose (mL): Contrast 2: Total Dose (mL): MEASUREMENTS (Male / Female) Normal Values 2D ECHO LV Diastolic Diameter PLAX 3.3 cm 4.2 - 5.9 / 3.9 - 5.3 cm LV Systolic Diameter PLAX 2.1 cm IVS Diastolic Thickness 1.2 cm 0.6 - 1.0 / 0.6 - 0.9 cm LVPW Diastolic Thickness 1.2 cm 0.6 - 1.0 / 0.6 - 0.9 cm LV Relative Wall Thickness 0.7 RV Internal Dim ED PLAX 2.5 cm LA Systolic Diameter LX 2.9 cm 3.0 - 4.0 / 2.7 - 3.8 cm LA Volume 38.5 cm??? 18 - 58 / 22 - 52 cm??? M-MODE Aortic Root Diameter MM 3.0 cm MV E Point Septal Separation 0.4 cm AV Cusp Separation MM 1.5 cm DOPPLER AV Peak Velocity 319.9 cm/s AV Peak Gradient 40.9 mmHg AV Mean Velocity 241.8 cm/s AV Mean Gradient 25.2 mmHg AV Velocity Time Integral 66.9 cm AI Peak Velocity 361.1 cm/s AI Peak Gradient 52.2 mmHg AI Pressure Half Time 706.3 ms LVOT Peak Velocity 121.6 cm/s LVOT Peak Gradient 5.9 mmHg MV Area PHT 1.4 cm??? Mitral E Point Velocity 75.6 cm/s Mitral A Point Velocity 137.5 cm/s Mitral E to A Ratio 0.5 MV Deceleration Time 542.0 ms MV E' Velocity 6.2 cm/s Mitral E to MV E' Ratio 12.3 TR Peak Velocity 272.6 cm/s TR Peak Gradient 29.7 mmHg Right Ventricular Systolic Press 34.7 mmHg FINDINGS Left Ventricle Left ventricular ejection fraction is estimated at 60-65 %. Small left ventricular cavity. Mildly increased septal wall thickness. Mildly increased posterior wall thickness. Normal left ventricular wall motion. Right Ventricle Normal right ventricular size and function. Mild pulmonary hypertension. Right Atrium Normal right atrial size. Left Atrium Normal left atrial size. Mitral Valve Mitral valve thickened. Mild mitral annular calcification. Aortic Valve Aortic valve not well visualized. Moderate aortic stenosis with a peak gradient of 41 mmHg and a mean gradient of 25 mmHg. Mild aortic regurgitation. Tricuspid Valve Structurally normal tricuspid valve. Mild tricuspid regurgitation. Pulmonic Valve Pulmonic valve not well visualized. No pulmonic regurgitation. Pericardium Normal pericardium. No pericardial effusion. Aorta Normal size aortic root and proximal ascending aorta. CONCLUSIONS Concentric left ventricular hypertrophy Hyperdynamic left ventricle was EF around 65% Moderate aortic stenosis Previewed by: Dr. Moe Reddy MD (Electronically Signed) Final Date: 27 June 2022 07:35
[2022-06-27] MEDS: HEPARIN SODIUM,PORCINE/PF 5,000 UNIT/0.5 ML SYRINGE SQ SCH ×2 (08:13→20:58)
[2022-06-27] MEDS: FAMOTIDINE 20 MG TAB PO SCH (08:14)
[2022-06-27] MEDS: amLODIPine 5 MG TAB PO SCH (08:14)
[2022-06-27] MEDS: MEMANTINE 10 MG TAB PO SCH ×2 (08:14→20:58)
[2022-06-27] MEDS: TICAGRELOR 90 MG TAB PO SCH ×2 (08:14→20:58)
[2022-06-27] MEDS: ASPIRIN 81 MG PO SCH (08:14)
[2022-06-27] MEDS: ATORVASTATIN 40 MG TAB PO SCH (08:14)
--- NOTE | 2022-06-27 09:51 | P.PN ---
Subjective Progress Note Date: 06/27/22 Principal diagnosis: CVA Patient is seen and examined today as a follow-up for acute ischemic stroke. Neurology following patient, he states after reviewing MRI believe stroke likely cardioembolic. Patient states right upper extremity weakness improving. Patient still has no movement in her right lower extremity. However she states that she was up and ambulating today, likely patient confused. She denies any new focal deficits. Objective - Vital Signs Vital signs: Vital Signs Temp 98.1 F 06/27/22 08:15 Pulse 75 06/27/22 08:15 Resp 18 06/27/22 08:15 BP 187/65 06/27/22 08:15 Pulse Ox 98 06/27/22 08:15 FiO2 Intake & Output 06/26/22 06/27/22 06/27/22 18:59 06:59 18:59 Intake Total 0 420 Output Total 800 Balance 0 -800 420 Weight 57.5 kg Intake: Oral 0 420 Output: Urine 800 Uretheral ([place]) 800 Other: Voiding Method Indwelling Catheter Indwelling Catheter Indwelling Catheter - Exam General appearance: The patient is alert, oriented, appears in no acute distress. HET: Head is normocephalic and atraumatic. Pupils are equal and reactive. Neck: Supple. Trachea midline. No audible carotid bruit. Heart: Regular. Lungs: Equal expansion, normal respiratory effort. Abdomen: Soft, nontender, nondistended. Extremities: Normal skin color and turgor. No cyanosis, rash, ulceration, clubbing, or edema. Radial and pedal pulses are 2/4 bilaterally. Neurological: Patient alert and oriented 3. Her speech is fluent, patient has facial symmetry, following commands and answering questions appropriately. Right upper extremity weakness 4/5 compared to left. Right lower extremity with good tone, no mobility/movement. - Labs CBC & Chem 7: 06/25/22 07:02 06/25/22 07:02 Labs: Abnormal Lab Results - Last 24 Hours (Table) 06/26/22 06/26/22 06/27/22 Range/Units 07:28 19:44 05:56 POC Glucose (mg/dL) 130 H 157 H (70-110) mg/dL Triglycerides 296.00 H (0.00-149.00) mg/dL Cholesterol 263.00 H (0.00-200.00) mg/dL LDL Cholesterol, Calc 155.1 H (0.0-131.0) mg/dL VLDL Cholesterol, Calc 59.20 H (5.00-40.00) mg/dL Assessment and Plan Assessment: 1. Acute ischemic stroke manifesting with right hemiparesis 2. Multiple small areas of cortical subcortical acute to subacute ischemia involving left superior parietal lobe, left parieto-occipital junction and punch wet area within the right posterior parietal lobe per MRI 3. Discordant findings between CT angiogram and carotid duplex. [place] that carotid duplex is more accurate with patent bilateral carotids as reviewed by Dr. Mansfield. 4. Dementia Plan: 1. Continue recommendations from neurology 2. PT/OT/ST on consult 3. No vascular surgical intervention indicated at this time. Continue with medical therapy. Recommend outpatient follow-up with vascular surgery Thank you for this consultation, we will sign off at this time. The impression and plan of care has been dictated as directed. I performed a history and examination of this patient, discussed the same with the dictator. I agree with the dictator's note ,documented as a scribe. Any additional findings or plans will be noted.
[2022-06-27 11:38] LABS: Glucose,Whole Blood 100 mg/dL (70-110)
--- NOTE | 2022-06-27 14:22 | P.PN ---
Subjective Progress Note Date: 06/27/22 This is a pleasant 87 years old female with no significant past medical history Patient is somewhat poor historian, she says she came because of her son but she does not know what happened. In reviewing the admission records it looks like was found on the toilet by her son in the bathroom. Currently patient is awake and alert she is somewhat confused. She is complaining of from right arm and right leg weakness. She move her right arm slowly but she cannot move her right leg at all. She denies headache dizzinessvision or slurred speech. She denies any other complaint Elsie no chest pain or dyspnea. No vomiting diarrhea or abdominal pain. No urinary complaints No smoking or alcohol scissors as per patient Vitals review, patient is afebrile bradycardic heart rate around 55-64. With hemoglobin 11.3. CBC, INR is unremarkable. Creatinine is 1.1 Crystal BMP and liver enzymes are unremarkable CT of the brain: cerebral atrophy, ventriculomegaly , prolonged communicating hydrocephalus CTA Of the brain showing severe right internal carotid artery stenosis 80-90% Chest x-ray: Possible CHF with developing pulmonary edema EKG: Normal sinus rhythm at [address]-T changes. In the ER she received brilinta ProBNP is 556. Ammonia is low. Creatinine kinase 46. 06/26/2019 Patient right arm weakness is improving, today she can move her right arm above her head but still weaker than the left side. Right leg weakness is severe and with no improvement today, she barely can move it or raise it off the bed. Echocardiogram and MRI pending Patient is started on aspirin and brilinta Start Norvasc 2.5 mg for hypertension Also patient pre-diabetes or urinary diabetes mellitus with hemoglobin A1c 6.7, start diabetic diet Vascular surgery consult for ICA stenosis of the left side, 80% 06/26/2022 Patient is evaluated today sitting up in bed, family at bedside. Patient reports no issues with swallowing. She is alert x3. Continues with the right hemiparesis although has been moving right arm weak grasp. Echocardiogram taken and pending. Consider DEEJAY to rule out embolic source of acute stroke. Patient did undergo MRI today which reveals small multiple areas of cortical and subcortical acute to subacute ischemia involving the left superior parietal lobe, left parietal occipital junction, and punctuate area within the right posterior parietal lobe. There is no mass effect or midline shift. There are degenerative abnormal ischemic change. There is greater central component of the ventricular dilation suggests possibility of hydrocephalus with the differential diagnosis. Upon review of the MRI it is felt that the ventricles are normal size for patients age. The lipid panel significantly elevated with a triglyceride level of 296, cholesterol 263, LDL 155, HDL 48.7. 06/27/2022 Patient is evaluated today sitting up in the chair today with family at the bedside. Patient is alert does have brief moments of confusion. Family states patient does have underlying vascular dementia. Echocardiogram shows an EF of around 65% with moderate aortic stenosis. Neurology feels this is possibly a cardioembolic stroke and for this reason cardiology consultation has been requested for possible DEEJAY. Family does have concern with patient being sedated. Blood pressure is elevated in the 180s. Patient has been started on 5 mg of norvasc which will be increased to 10 mg of norvasc daily. Patient has been evaluated for IP rehab and plans to DC to [facility] IP rehab when medically stable. Review of Systems Constitutional: Denied any fatigue denied any fever. Cardio vascular: denied any chest pain, palpitations Gastrointestinal: denied any nausea, vomiting, diarrhea Pulmonary: Denied any shortness of breath cough Neurologic denied any new focal deficits All inpatient medications were reviewed and appropriate changes in these medications as dictated in the interval history and assessment and plan. PHYSICAL EXAMINATION: GENERAL: The patient is alert and oriented x2-3, not in any acute distress. Well developed, well nourished. HEENT: Pupils are round and equally reacting to light. EOMI. No scleral icterus. No conjunctival pallor. Normocephalic, atraumatic. No pharyngeal erythema. No thyromegaly. CARDIOVASCULAR: S1 and S2 present. No murmurs, rubs, or gallops. PULMONARY: Chest is clear to auscultation, no wheezing or crackles. ABDOMEN: Soft, nontender, nondistended, normoactive bowel sounds. No palpable organomegaly. MUSCULOSKELETAL: No joint swelling or deformity. EXTREMITIES: No cyanosis, clubbing, or pedal edema. NEUROLOGICAL: Right lower extremity paralysis, 2/5 strength right upper exremity weak grasp SKIN: No rashes. Assessment and plan Assessment -Acute bilateral stroke ischemic vs. embolic with right hemiparesis, patient has multiple small areas of cortical subcortical acute to subacute ischemia in the left superior parietal, left parieto-occipital junction and punctuate area within the right posterior parietal lobe. -Rule out carotid artery stenosis, vascular evaluation and felt carotid duplex i s more accurate with patent bilateral carotid arteries -Borderline diabetes with hemoglobin A1c of 6.7 this is a new onset Dyslipidemia with triglycerides of 296 and cholesterol level of 263, LDL is elevated at 155. -Elevated creatinine this is possibly a chronic kidney disease stage III versus a mild acute kidney injury. No prior creatinine available for comparison. -Hyponatremia resolved -Symptomatic bradycardia -Anemia, normocytic and normochromic -History of vascular dementia GI prophylaxis DVT prophylaxis Plan Cardiology has been consulted for possible DEEJAY Neurology is following closely. Continue cardiac monitoring and patient requiring event monitor on discharge Atorvastatin has been increased Neurology following closely Inpatient rehab on discharge when medically stable The impression and plan of care has been dictated by Mari Malone, Nurse Practitioner as directed. Dr. Giana MD I have performed a history and physical examination and medical decision making of this patient, discussed the same with the dictator, and agree with the dictators assessment and plan as written, documented as a scribe. Based on total visit time, I have performed more than 50% of this visit. Objective - Vital Signs Vital signs: Vital Signs Temp 98.1 F 06/27/22 08:15 Pulse 76 06/27/22 11:30 Resp 17 06/27/22 11:30 BP 186/69 06/27/22 11:30 Pulse Ox 98 06/27/22 11:30 FiO2 Intake & Output 06/26/22 06/27/22 06/27/22 18:59 06:59 18:59 Intake Total 0 420 Output Total 800 Balance 0 -800 420 Weight 57.5 kg Intake: Oral 0 420 Output: Urine 800 Uretheral ([place]) 800 Other: Voiding Method Indwelling Catheter Indwelling Catheter Indwelling Catheter - Labs CBC & Chem 7: 06/25/22 07:02 06/25/22 07:02 Labs: Abnormal Lab Results - Last 24 Hours (Table) 06/26/22 06/27/22 Range/Units 19:44 05:56 POC Glucose (mg/dL) 130 H 157 H (70-110) mg/dL Assessment and Plan Time with Patient: Less than 30
[2022-06-27 16:29] LABS: Glucose,Whole Blood 176 mg/dL (70-110)
--- NOTE | 2022-06-27 17:42 | P.PN ---
Subjective Progress Note Date: 06/27/22 The patient seen at bedside is accompanied by her son and she feels about the same as yesterday. He denies of any new neurological issues. Objective - Vital Signs Vital signs: Vital Signs Temp 98.1 F 06/27/22 08:15 Pulse 76 06/27/22 11:30 Resp 17 06/27/22 11:30 BP 186/69 06/27/22 11:30 Pulse Ox 98 06/27/22 11:30 FiO2 Intake & Output 06/26/22 06/27/22 06/27/22 18:59 06:59 18:59 Intake Total 0 600 Output Total 800 Balance 0 -800 600 Weight 57.5 kg Intake: Oral 0 600 Output: Urine 800 Uretheral ([place]) 800 Other: Voiding Method Indwelling Catheter Indwelling Catheter Indwelling Catheter - Exam Neuro: Higher mental function: The patient is awake, alert, oriented to self and stated was in hospital but unsure of name. She could not tell me time. She is able to name pen with options. She is slow responding to questions. She is following few simple commands. Language is limited. No neglect. Cranial Nerves: Pupils are round, equal and reactive to light. Visual field are full to confrontation. EOM intact looking to right and left side and without any nystagmus. No dysarthria. Right upper extremity: 4--4+ with right pronator drift. Right lower is minimally able to wiggle toes on right but has significant weakness right lowers. Left seems normal - Labs CBC & Chem 7: 06/25/22 07:02 06/25/22 07:02 Labs: Abnormal Lab Results - Last 24 Hours (Table) 06/26/22 06/27/22 06/27/22 Range/Units 19:44 05:56 16:27 POC Glucose (mg/dL) 130 H 157 H 176 H (70-110) mg/dL Assessment and Plan Assessment: * Acute ischemic stroke, manifesting with right hemiparesis. MRI reveal stroke over the left parietal, parietal-occipitala and small right pareital but if feel more left frontal and left parietal/occipital region and small focus 9maybe two over the right parietal-occitial/frontal. Seems cardioembolic in nature * Right hemiparesis due to above * Diabetes Mellitus * Dyslipidemia * Discordant findings between CT angiogram (right ICA of about 80-90%) and carotid duplex. [place] that carotid duplex is more accurate with no significant stenosis bilaterally per vascular team. * Dementia, moderate to severe degree. * Hypertension Plan: * MRI Brain is reported as multiple small area of cortical subcortical acute to subacute ischemic involving the left superior parietal lobe, left parietal occipital junction and punctate area within the right posteroparietal lobe area no mass effect or midline shift. Degenerative and removal ischemic changes. Greater central component of the ventricle dialysis just possibly of normal pressure hydrocephalus within the differential diagnosis. Correlate clinically. Personally reviewed the MRI and I felt the stroke was involving mostly the left frontal as well as left parietal occipital region and a small 2 focuses over the right hemisphere over the right parieto-occipital and maybe the right frontal region. I feel the stroke is a seems more cardioembolic in nature. Regarding this concern of NPH on imaging recommend follow-up as an outpatient neurologist for further workup and management but I do not feels she is a good candidate for BRICK [facility]IL[facility] BURNER shunt and her son is not leaning of any surgery because of her age.. * 2-D echo with bubble: It is reported as concentric left ventricle hypertrophy. Hyperdynamic left ventricular ejection fraction around 65. Moderate aortic stenosis. Consider DEEJAY with cardiology consultation. Recommend event monitor for 30 days to rule out any a-fib or flutter. * CTA head and neck showed: Severe, 80-90% right ICA stenosis. No dissection, occlusion or other significant stenosis. CT of the head was normal. * Carotid Doppler, however revealed no evidence for hemodynamically significant stenosis. * Discordant findings between CTA and carotid ultrasound. Vascular feels carotid duplex is more accurate. * Fasting a.m. lipid panel: TG 296, cholestrol 263, LDL 155 and HDL 48 * Hemoglobin A1c 6.7 * Patient was loaded with aspirin 325 mg and Brilinta 180 mg in the ER. Patient will be maintained on DAP with aspirin 81 mg daily and Brilinta 90 mg twice a day for 30 days. Thereafter may stop Brilinta, and maintain on aspirin 81 mg daily. * Continue Pepcid 20 mg twice a day for gastric ulcer prophylaxis. * Close neuro checks. * Telemetry monitoring rule out any arrhythmia * Continue Namenda and Aricept for dementia. * DVT prophylaxis: Heparin 5000 units subcu every 12 hours. The plan is discussed in detailed with patient and her son who is at bedside. Time with Patient: Less than 30
[2022-06-27 20:09] LABS: Glucose,Whole Blood 160 mg/dL (70-110)
[2022-06-27] MEDS: DONEPEZIL 10 MG TAB PO SCH (20:58)
[2022-06-28 04:01] VITALS: TEMP 97.7
[2022-06-28 06:03] LABS: Glucose,Whole Blood 133 mg/dL (70-110)
[2022-06-28] MEDS: INSULIN ASPART (NovoLOG) 100 UNIT/ML VIAL SQ SCH ×2 (06:28→11:44)
[2022-06-28] MEDS ORDERED: metFORMIN 500 MG TAB PO SCH (07:30)
[2022-06-28] MEDS: MEMANTINE 10 MG TAB PO SCH (08:34)
[2022-06-28] MEDS: TICAGRELOR 90 MG TAB PO SCH (08:34)
[2022-06-28] MEDS: HEPARIN SODIUM,PORCINE/PF 5,000 UNIT/0.5 ML SYRINGE SQ SCH (08:34)
[2022-06-28] MEDS: FAMOTIDINE 20 MG TAB PO SCH (08:34)
[2022-06-28] MEDS: ASPIRIN 81 MG PO SCH (08:34)
[2022-06-28] MEDS: ATORVASTATIN 40 MG TAB PO SCH (08:34)
[2022-06-28] MEDS ORDERED: amLODIPine 10 MG TAB PO SCH (09:00)
[2022-06-28 11:42] LABS: Glucose,Whole Blood 109 mg/dL (70-110)
[2022-06-28 12:07] VITALS: BP 155/69; PULSE 95; RESP 18
--- NOTE | 2022-06-28 13:18 | P.CRDCN ---
History of Present Illness Consult date: 06/28/22 Consult reason: other (stroke, eval for DEEJAY) Chief complaint: right side weakness History of present illness: History of present illness: This is a pleasant 87-year-old female with significant past medical history of diabetes, hyperlipidemia, hypertension, dementia who was admitted 06/24/22 with complaints of right-sided weakness. Per chart, patient was found by the toilet and her bathroom by her son with right-sided weakness. MRI process was positive for a stroke showing multiple small areas of cortical and subcortical acute distress of acute ischemia of the left superior parietal lobe, left parietaloccipital junction and right posterior parietal lobe concerning for embolic etiology. Cardiology was consulted for possible DEEJAY. Echocardiogram shows ejection fraction 6065 percent, moderate aortic stenosis. CTA head and neck initially showed right ICA stenosis 8090 percent, however carotid ultrasound with no significant stenosis. Vascular surgery was consulted and no intervention is planned as they believed carotid ultrasound is more accurate. Patient is presently on aspirin and Proventil. Denies any history of cardiac arrhythmias. She denies any chest pain or shortness of breath. She does have residual right-sided weakness. REVIEW OF SYSTEMS: No fever or chills. No cough or expectoration. No diaphoresis. Patient denies headache, dizziness, blurred vision, double vision. Patient denies any stomach discomfort. No nausea, vomiting. No hematochezia. No hematemesis. Denies any black stools or blood in his stools. Denies dysuria or hematuria. Report UE and RLE weakness. No chest pain or pressure. PHYSICAL EXAMINATION: This is a 87-year-old female in no apparent distress at the time of my examination. HEENT: Head is atraumatic, normocephalic. Pupils are equal, round. Sclerae anicteric. Conjunctivae are clear. Mucous membranes of the mouth are moist. Neck is supple. There is no jugular venous distention. No carotid bruit is heard. CHEST EXAMINATION: Lungs are clear to auscultation. No chest wall tenderness is noted on palpation or with deep breathing. HEART EXAMINATION: Heart regular rate and rhythm. S1, S2 heard. 3/6 systolic murmurs, gallops or rub. ABDOMEN: Soft, nontender. Bowel sounds are heard. No organomegaly noted. EXTREMITIES: 2+ peripheral pulses with no evidence of peripheral edema and no calf tenderness noted. NEUROLOGIC EXAMINATION: Patient is awake, alert and oriented x1-2, some confusion. RUE able to lift off bed, RLE no movement, able to feel touch. IMPRESSION AND PLAN: CVA, right hemiparesis Diabetes Hypertension Hyperlipidemia Moderate aortic stenosis PLAN: Recommend DEEJAY to eval for clot, given concern for embolic stroke. Risks and benefits of procedure reviewed with son Nato at bedside, son is concerned for anesthesia risk with procedure. After a long discussion, son would like to hold off on DEEJAY at this time. Recommend 30 day event monitor to rule out a-fib. Follow up in clinic 1 week after discharge and can always readdress DEEJAY at that time. Cardiology to sign off. Call with any questions. I am dictating on behalf of Dr. Jake Navarro's history/physical and assessment/plan. Past Medical History Additional Past Medical History / Comment(s): Unable to obtian at this time History of Any Multi-Drug Resistant Organisms: None Reported Additional Past Surgical History / Comment(s): Unable to obtain at this time Past Psychological History: No Psychological Hx Reported Smoking Status: Never smoker Past Drug Use History: None Reported Medications and Allergies Home Medications Medication Instructions Recorded Confirmed Type Cholecalciferol [Vitamin D3 (25 50 mcg PO DAILY 06/24/22 06/24/22 History Mcg = 1000 Iu)] Donepezil [Aricept] 10 mg PO HS 06/24/22 06/26/22 History Enalapril [Vasotec] 20 mg PO DAILY 06/24/22 06/26/22 History Escitalopram [Lexapro] 20 mg PO DAILY 06/24/22 06/26/22 History Memantine HCl 10 mg PO DAILY 06/24/22 06/26/22 History Mirtazapine 30 mg PO HS 06/24/22 06/26/22 History [place]-3/Dha/Epa/Fish Oil [Fish Oil 1 cap PO BID 06/24/22 06/24/22 History 1,000 mg Softgel] NIFEdipine XL [Procardia Xl] 30 mg PO DAILY 06/26/22 06/26/22 History Allergies Allergy/AdvReac Type Severity Reaction Status Date / Time No Known Allergies Allergy Verified 06/24/22 11:15 Physical Exam Vitals: Vital Signs Temp Pulse Resp BP Pulse Ox FiO2 06/28/22 11:10 95 18 155/69 97 06/28/22 08:10 97.7 F 76 17 155/67 97 06/28/22 08:04 96 21 06/28/22 03:53 97.7 F 68 16 172/65 98 06/28/22 01:13 153/64 06/28/22 00:00 97.4 F L 66 16 183/51 06/27/22 21:45 161/65 06/27/22 20:28 97.9 F 76 16 190/47 99 06/27/22 16:30 65 18 157/66 98 Intake and Output 06/27/22 06/28/22 06/28/22 22:59 06:59 14:59 Intake Total 180 Output Total 400 300 Balance -220 -300 Intake: Oral 180 Output: Urine 400 300 Other: Voiding Method Indwelling Catheter Indwelling Catheter Indwelling Catheter Results 06/25/22 07:02 06/25/22 07:02 Current Medications Generic Name Dose Route Start Last Admin Trade Name Freq PRN Reason Stop Dose Admin Amlodipine Besylate 10 mg 06/28/22 09:00 06/28/22 08:34 Amlodipine 10 Mg Tab PO 10 mg DAILY KELLY Administration Aspirin 81 mg 06/25/22 09:00 06/28/22 08:34 Aspirin 81 Mg PO 81 mg DAILY KELLY Administration Atorvastatin Calcium 40 mg 06/27/22 09:00 06/28/22 08:34 Atorvastatin 40 Mg Tab PO 40 mg DAILY KELLY Administration Dextrose/Water 25 ml 06/26/22 17:33 Dextrose 50% Syringe 50 Ml IVP PER PROTOCOL PRN Hypoglycemia Protocol Dextrose/Water 50 ml 06/26/22 17:33 Dextrose 50% Syringe 50 Ml IVP PER PROTOCOL PRN Hypoglycemia Protocol Donepezil HCl 10 mg 06/25/22 21:00 06/27/22 20:58 Donepezil 10 Mg Tab PO 10 mg HS KELLY Administration Famotidine 20 mg 06/26/22 09:00 06/28/22 08:34 Famotidine 20 Mg Tab PO 20 mg DAILY KELLY Administration Heparin Sodium (Porcine) 5,000 unit 06/24/22 21:00 06/28/22 08:34 Heparin Sodium,Porcine/Pf 5,000 Unit/0.5 Ml Syringe SQ 5,000 unit Q12HR KELLY Administration Insulin Aspart 0 unit 06/26/22 21:00 06/28/22 11:44 Insulin Aspart (Novolog) 100 Unit/Ml Vial SQ Not Given ACHS [facility] Protocol Insulin Detemir 6 unit 06/28/22 21:00 Insulin Detemir (Levemir) 100 Unit/Ml Syr SQ HS [facility] Memantine 10 mg 06/25/22 21:00 06/28/22 08:34 Memantine 10 Mg Tab PO 10 mg BID [facility] Administration Metformin HCl 500 mg 06/28/22 07:30 06/28/22 08:34 Metformin 500 Mg Tab PO Not Given W/BRKFST [facility] Ondansetron HCl 4 mg 06/26/22 09:48 Ondansetron 4 Mg/2 Ml Vial IVP Q6HR PRN Nausea And Vomiting Ticagrelor 90 mg 06/25/22 14:00 06/28/22 08:34 Ticagrelor 90 Mg Tab PO 90 mg BID [facility] Administration Intake and Output 06/27/22 06/28/22 06/28/22 22:59 06:59 14:59 Intake Total 180 Output Total 400 300 Balance -220 -300 Intake: Oral 180 Output: Urine 400 300 Other: Voiding Method Indwelling Catheter Indwelling Catheter Indwelling Catheter 06/25/22 07:02 06/25/22 07:02
[2022-06-28 13:20] LABS: Calcium 9.4 mg/dL (8.4-10.2)
[2022-06-28 13:40] LABS: Potassium 5.2 mmol/L (3.5-5.1)
[2022-06-28] MEDS ORDERED: DOCUSATE 100 MG CAP PO SCH (14:13)
--- NOTE | 2022-06-28 14:43 | P.DS ---
Providers Date of admission: 06/24/22 05:01 Attending physician: Adrianne Reid Consults: 06/24/22 05:02 Consult Physician Urgent Consulting Provider: Ky Mcdonald Consult Reason/Comments: CVA Do you want consulting provider notified?: Yes 06/24/22 09:55 Consult Physician Urgent Consulting Provider: Franca Shelton Consult Reason/Comments: right ICA stenosis Do you want consulting provider notified?: Yes 06/26/22 11:30 Consult Physician Routine Consulting Provider: Benson Dai Consult Reason/Comments: Eval for IPR Do you want consulting provider notified?: Yes 06/27/22 11:43 Consult Physician Routine Consulting Provider: Jake Navarro Consult Reason/Comments: DEEJAY Do you want consulting provider notified?: Yes Primary care physician: Jessica West Hospital Course: Diagnoses: -Acute bilateral stroke ischemic vs. embolic with right hemiparesis, patient has multiple small areas of cortical subcortical acute to subacute ischemia in the left superior parietal, left parieto-occipital junction and punctuate area within the right posterior parietal lobe. The is recommended but the family declined. Patient will be discharged with recommendation for outpatient follow- up. Patient will be discharged on aspirin and brilinta -Left internal carotid artery stenosis 80% on CTA but carotid Doppler showing no significant stenosis, vascular surgery team evaluated patient and felt carotid duplex is more accurate with patent bilateral carotid arteries -Borderline diabetes with hemoglobin A1c of 6.7 this is a new onset Dyslipidemia with triglycerides of 296 and cholesterol level of 263, LDL is elevated at 155. -Elevated creatinine this is possibly a chronic kidney disease stage III versus a mild acute kidney injury. No prior creatinine available for comparison. 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 In reviewing the admission records it looks like was found on the toilet by her son in the bathroom. Currently patient is awake and alert she is somewhat confused. She is complaining of from right arm and right leg weakness. She move her right arm slowly but she cannot move her right leg at all. She denies headache dizzinessvision or slurred speech. Patient has been evaluated by neurologist and vascular surgery, patient has evidence of bilateral ischemic stroke mainly left frontal and left parietal stroke with right leg hemiplegia and right upper extremity hemiparesis with no significant improvement. Since admission patient can raise her arm slowly above her head which is weaker compared to the left arm. However she cannot move her leg off the bed or sidewise, Patient evaluated by neurologist and she was started on aspirin and brilinta patient to continue both of them for 30 days and then stop brilinta and continue with baby aspirin 81 mg daily. MRI Brain is reported as multiple small area of cortical subcortical acute to subacute ischemic involving the left superior parietal lobe, left parietal occipital junction and punctate area within the right posteroparietal lobe area no mass effect or midline shift. Degenerative and removal ischemic changes. Greater central component of the ventricle dialysis just possibly of normal pressure hydrocephalus within the differential diagnosis. Correlate clinically. Given her multiple strokes DEEJAY is recommended and leaf conditioner team were consulted who evaluated the patient today. Because of the risk of anesthesia the son would like to hold on DEEJAY for now, leaf conditioner recommended 30 day event monitor and follow-up in the clinic in 1 week after discharge to reassess need for DEEJAY at that time again. Patient was started on Namenda and Aricept for dementia Patient also was placed on Shelton catheter which can be considered for discontinuation 24-48 hours. Please check postvoid residual after discontinuing the Shelton catheter Patient remained clinically stable, mentation is a stable, she is mildly confused. She still have right-sided weakness that more than arm. She denies any other new symptoms. No chest pain or dyspnea, no change in urine or bowel habits. Patient was cleared for discharge by consult transplant cardiology and neurology and vascular surgery Problems and management plan were discussed with the patient and he verbalized understanding and acceptance Patient was found stable and can be discharged longterm in guarded prognosis however he needs follow-up as an outpatient. Patient was instructed to follow up with PCP within one week and patient agrees Patient was instructed to follow up with vascular surgery Dr. Blankenship to in 2 w eeks Also patient instructed to follow up with leaf conditioner Dr. Chaves in one week after discharge Patient also will need to follow-up with the neurologist as an outpatient and Dr. Stout suggested in 1-2 weeks Physical exam -Gen: patient is a awake alert and mildly confused, no distress CVS: S1-S2, RRR, no murmur Lungs: B/L CTA, no wheezing Abdomen: soft, no distention, no tenderness, positive bowel sounds Extremity: no leg edema or induration -neuro: Mildly confused, right leg week, barely can move it. Right arm is weaker but she commented above her head. Left-sided motor 5/5. Sensation intact. Meningeal signs are absent. Gait deferred Time spent more than 35 minutes Patient Condition at Discharge: Stable Plan - Discharge Summary Discharge Rx Participant: No New Discharge Prescriptions: No Action [place]-3/Dha/Epa/Fish Oil [Fish Oil 1,000 mg Softgel] 1 cap PO BID Cholecalciferol [Vitamin D3 (25 Mcg = 1000 Iu)] 50 mcg PO DAILY Mirtazapine 30 mg PO HS Enalapril [Vasotec] 20 mg PO DAILY Donepezil [Aricept] 10 mg PO HS Memantine HCl 10 mg PO DAILY Escitalopram [Lexapro] 20 mg PO DAILY NIFEdipine XL [Procardia Xl] 30 mg PO DAILY Discharge Medication List Cholecalciferol [Vitamin D3 (25 Mcg = 1000 Iu)] 50 mcg PO DAILY 06/24/22 [H istory] Donepezil [Aricept] 10 mg PO HS 06/24/22 [History] Enalapril [Vasotec] 20 mg PO DAILY 06/24/22 [History] Escitalopram [Lexapro] 20 mg PO DAILY 06/24/22 [History] Memantine HCl 10 mg PO DAILY 06/24/22 [History] Mirtazapine 30 mg PO HS 06/24/22 [History] [place]-3/Dha/Epa/Fish Oil [Fish Oil 1,000 mg Softgel] 1 cap PO BID 06/24/22 [History] NIFEdipine XL [Procardia Xl] 30 mg PO DAILY 06/26/22 [History] Follow up Appointment(s)/Referral(s): Amador Mansfield DO [Doctor of Osteopathic Medicine] - 2 Weeks None,Stated [REFERRING] - 1-2 days
[2022-06-28] MEDS ORDERED: INSULIN DETEMIR (LEVEMIR) 100 UNIT/ML SYR SQ SCH (21:00)
== END 2022-06-28 17:13 | DRG 65 ==
LOC: EC 03:11 → 3SCARD 05:01
PROVIDERS: ADMIT Hospitalist; ATTEND Hospitalist
DX: I63.233 Cerebral infarction due to unspecified occlusion or stenosis of bilateral carotid arteries (principal); E87.1 Hypo-osmolality and hyponatremia; G81.91 Hemiplegia, unspecified affecting right dominant side; I13.0 Hypertensive heart and chronic kidney disease with heart failure and stage 1 through stage 4 chronic kidney disease, or unspecified chronic kidney disease; G91.0 Communicating hydrocephalus; R47.01 Aphasia; G93.89 Other specified disorders of brain; F01.50 Vascular dementia, unspecified severity, without behavioral disturbance, psychotic disturbance, mood disturbance, and anxiety; F02.80 Dementia in other diseases classified elsewhere, unspecified severity, without behavioral disturbance, psychotic disturbance, mood disturbance, and anxiety; I50.9 Heart failure, unspecified; E11.22 Type 2 diabetes mellitus with diabetic chronic kidney disease; F03.B0 Unspecified dementia, moderate, without behavioral disturbance, psychotic disturbance, mood disturbance, and anxiety; D64.9 Anemia, unspecified; N18.30 Chronic kidney disease, stage 3 unspecified; R00.1 Bradycardia, unspecified; R29.708 NIHSS score 8; R27.0 Ataxia, unspecified; E78.5 Hyperlipidemia, unspecified; Z79.899 Other long term (current) drug therapy; Z28.311 Partially vaccinated for COVID-19
CPT/HCPCS: 36415; 70450; 70496; 70498; 70551; 71045; 80048; 80053; 80061; 80306; 81003; 82140; 82550; 82607; 82746; 83036; 83880; 84443; 84484; 85025; 85610; 85730; 93005; 93270; 93306; 93880; 94760; 99291